=== PATIENT | female | born 1950 | race Caucasian/White ===

== ENCOUNTER 2016-08-22 12:18 | Emergency (ER) | payer MEDICARE, OTHER ==
[2016-08-22] MEDS ORDERED: DIPH,PERTUS(ACELL)TETVAC-LF 0.5 ML VIAL IM ONE (12:32)
--- NOTE | 2016-08-22 12:48 | ED ---
Fall HPI - General Chief Complaint: Fall Stated Complaint: Fall Time Seen by Provider: 08/22/16 12:27 Source: patient, EMS, RN notes reviewed Mode of arrival: EMS Limitations: no limitations - History of Present Illness Initial Comments: 66-year-old female presents emergency Department chief complaint of slip and fall, facial injury. Patient states that she slipped and fell onto a milk crate. Patient states she fell and hit her face and the ground also. Patient claims of facial pain, nose pain. Patient has a laceration to her lip and some epistaxis noted. Patient is unsure when her last tetanus was. Patient denies any blood thinners. Patient denies any neck, back pain. Patient denies any hip pain, upper extremity injuries. - Related Data Home Medications Medication Instructions Recorded Confirmed Hydrochlorothiazide 25 mg PO DAILY 10/15/13 08/22/16 [Hydrochlorothiazide] Multivitamins, Thera [Multivitamin] 1 tab PO DAILY 10/15/13 08/22/16 Vitamin E (Dl,Tocopheryl Acet) 400 units PO DAILY 10/15/13 08/22/16 [Vitamin E] Fiber Gummy 1 tab PO DAILY 06/17/15 08/22/16 Oxybutynin Chloride [Ditropan] 5 mg PO TID 06/17/15 08/22/16 ARIPiprazole [Abilify] 5 mg PO DAILY 08/22/16 08/22/16 Desvenlafaxine [Pristiq ER] 100 mg PO DAILY 08/22/16 08/22/16 busPIRone HCL 15 mg PO BID 08/22/16 08/22/16 Previous Rx's Medication Instructions Recorded Amoxicillin/Potassium Clav 1 tab PO Q12HR #20 tab 08/22/16 [Augmentin 875-125 Tablet] Hydrocodone/Acetaminophen [Campbell 1 tab PO Q6HR PRN #20 tab 08/22/16 5-325] Allergies Allergy/AdvReac Type Severity Reaction Status Date / Time codeine Allergy Unknown Verified 08/22/16 12:23 Review of Systems ROS Statement: Those systems with pertinent positive or pertinent negative responses have been documented in the HPI. ROS Other: All systems not noted in ROS Statement are negative. Past Medical History Past Medical History: Eye Disorder, Hyperlipidemia, Hypertension, Osteoarthritis (OA), Thyroid Disorder History of Any Multi-Drug Resistant Organisms: None Reported Past Surgical History: Cholecystectomy, Hysterectomy, Orthopedic Surgery Additional Past Surgical History / Comment(s): thumb surgery, plates and screws in left foot Past Anesthesia/Blood Transfusion Reactions: No Reported Reaction Past Psychological History: Anxiety Smoking Status: Never smoker Past Alcohol Use History: None Reported Past Drug Use History: None Reported General Exam Limitations: no limitations General appearance: alert, in no apparent distress Head exam: Present: atraumatic, normocephalic, normal inspection Eye exam: Present: normal appearance, PERRL, EOMI. Absent: scleral icterus, conjunctival injection, periorbital swelling ENT exam: Present: mucous membranes moist, TM's normal bilaterally, normal external ear exam, other (Extensive swelling and ecchymosis noted over the nose with tenderness over the nasal bridge there is some superficial lacerations noted along the nares and superficial lacerations in between the eyebrows, there is extensive swelling of the naris and full to visualize the nostrils). Absent: normal exam, normal oropharynx (1 cm lip laceration noted in the upper lip) Neck exam: Present: normal inspection. Absent: tenderness, meningismus, full ROM (Patient in c-collar), lymphadenopathy Respiratory exam: Present: normal lung sounds bilaterally. Absent: respiratory distress, wheezes, rales, rhonchi, stridor Cardiovascular Exam: Present: regular rate, normal rhythm, normal heart sounds. Absent: systolic murmur, diastolic murmur, rubs, gallop, clicks GI/Abdominal exam: Present: soft, normal bowel sounds. Absent: distended, tenderness, guarding, rebound, rigid Extremities exam: Present: normal inspection, full ROM, normal capillary refill , other (No pelvis tenderness). Absent: tenderness, pedal edema, joint swelling , calf tenderness Back exam: Present: full ROM. Absent: tenderness Neurological exam: Present: alert, oriented X3, CN II-XII intact, reflexes normal. Absent: motor sensory deficit Skin exam: Present: warm, dry, intact, normal color. Absent: rash Course Vital Signs 08/22/16 12:19 Temperature 98.0 F Pulse Rate 92 Respiratory 16 Rate Blood Pressure 175/93 O2 Sat by Pulse 95 Oximetry Procedures - Laceration Laceration #1 Consent Obtained: verbal consent Time Out Performed: Yes Site: lip Size (cm): 1 Description: irregular Depth: simple, single layer Anesthetic Used: lidocaine 1%, without epi Anesthesia Technique: local infiltration Amount (mls): 3 Pre-repair: wound explored, irrigated extensively, deep structures intact Type of Sutures: nylon Size of Sutures: 6-0 Number of Sutures: 3 Technique: simple, interrupted Patient Tolerated Procedure: well, no complications Medical Decision Making - Medical Decision Making 66-year-old female presented emergency department for fall facial injury. Patient has ethmoid all fracture and nasal fracture. Patient will follow-up with ENT. Patient was placed on Augmentin and Campbell. Return parameters were discussed. Disposition Clinical Impression: Fall, Nasal fracture, Ethmoid fracture Disposition: HOME SELF-CARE Condition: Stable Instructions: Nasal Fracture (ED) Additional Instructions: Please return to the Emergency Department if symptoms worsen or any other concerns. Prescriptions: Amoxicillin/Potassium Clav [Augmentin 875-125 Tablet] 1 tab PO Q12HR #20 tab Hydrocodone/Acetaminophen [Campbell 5-325] 1 tab PO Q6HR PRN #20 tab PRN Reason: Pain Referrals: Vazquez Brambila MD [Primary Care Provider] - 1-2 days Jame Duran MD [STAFF PHYSICIAN] - 1-2 days Time of Disposition: 15:03
--- NOTE | 2016-08-22 14:25 | CT ---
EXAMINATION TYPE: CT facial bones wo con DATE OF EXAM: 08/22/2016 COMPARISON: NONE HISTORY: Pain CT DLP: 943.8 mGycm Automated exposure control for dose reduction was used. TECHNIQUE: CT scan of the sinuses is performed without contrast, axial images are obtained, coronal r eformatted images are also reviewed. FINDINGS: Artifact limits assessment. Artifact arises from previous dental work. Nasal septal deviation noted. Extensive abnormal soft tissue is seen within the nasal canal. There ap pears to be fracture involving the ethmoidal plate of the nasal bone. Nasal bridge fracture suspected . Chronic fecal periosteal thickening involving the left maxillary sinus. Hyperostosis of the calvarium noted. Mild chronic ethmoidal sinusitis. Orbits are intact. Intraorbital structures are intact. IMPRESSION: 1. Nasal bridge and ethmoidal plate fracture with extensive hematoma or edema within the nasal canal.
--- NOTE | 2016-08-22 14:33 | CT ---
EXAMINATION TYPE: CT brain ximena porter DATE OF EXAM: 08/22/2016 COMPARISON: NONE HISTORY: Pain CT DLP: 943.8 mGycm Automated exposure control for dose reduction was used. TECHNIQUE: CT scan of the head and cervical spine are performed without contrast. FINDINGS: There is extensive dural calcification. Hyperostosis is seen. Calvarium is intact. Nasal bone fracture suspected with extensive soft tissue hematoma or edema within the nasal canal. Degenerative change of the spine. Periventricular low-attenuation suggestive of remote microvascular ischemia. Hypertrophic spurs and degenerative disc disease are seen C5-6 and C6-C7. Posterior spondylosis and f oraminal encroachment with possible canal stenosis. Correlate with MRI. Multilevel facet arthropathy. IMPRESSION: 1. There is no acute fracture or dislocation evident in the cervical spine. Multilevel degenerative d isc disease and facet arthropathy. Correlate with MRI. 2. No acute intracranial hemorrhage, mass effect, or midline shift is seen. 3. Thyroid nodules with thyroid calcification.
[2016-08-22 15:22] VITALS: BP 154/83; PULSE 87; RESP 18; TEMP 98.3
== END 2016-08-22 15:21 | disposition home or self-care (01) ==
LOC: EC 12:18
DX: S02.19XA Other fracture of base of skull, initial encounter for closed fracture (principal); S02.2XXA Fracture of nasal bones, initial encounter for closed fracture; S01.511A Laceration without foreign body of lip, initial encounter; I10 Essential (primary) hypertension; F41.9 Anxiety disorder, unspecified; Z79.899 Other long term (current) drug therapy; Z88.5 Allergy status to narcotic agent; Z23 Encounter for immunization; W01.198A Fall on same level from slipping, tripping and stumbling with subsequent striking against other object, initial encounter
CPT/HCPCS: 12011; 70450; 70486; 72125; 90471; 90715; 99284

== ENCOUNTER → 2017-01-31 | Outpatient (CLI) | payer MEDICARE, OTHER ==
[~2017-01-31] MED LIST: ATROPINE SULFATE 0.1 MG/ML 10ML SYRINGE ONE; DOBUTamine DRIP for NUC MED 500 MG in DEXTROSE/WATER 1 250ML.BAG IV ONE; METOPROLOL TARTRATE 5 MG/5 ML VIAL IVP ONE
--- NOTE | 2017-01-31 16:58 | ECHOS ---
Stress Test Results/Findings: Exam Performed: dobutamine stress echo Exam Date: 01/31/17 Reason for Exam: Chest Pain Height: 5 ft 2 in Weight: 84.368 kg Protocol: Dobutamine Stress echo Stage: 4 Duration of Exercise: 16 Resting Heart Rate: 72 Resting Blood Pressure: 135/80 Maximum Achieved Heart Rate: 156 Maximum Achieved Blood Pressure: 160/69 85% PMHR: 130 100% PMHR: 153 METS: na Technologist Comment: Stress Test Results/Findings: Baseline EKG showed sinus rhythm with a mild nonspecific ST-T abnormalities. EKGs taken during dobutamine infusion showed about 1 mm horizontal depression at peak infusion with continued mild ST-T abnormalities in the post x-rays.. Patient did not express any chest pain. Echo data: Baseline echo images showed normal wall motion and thickening. Echo images taken at low dose and high dose dobutamine showed augmentation of wall motion and thickening in all the segments. no focal ischemic changes noted. Final impression: #1. Borderline positive ST-T abnormalities during dobutamine infusion. These are felt to be nonspecific, because of baseline abnormalities. These changes also could be related to hypertensive response to exercise. #2. Negative dobutamine stress echo. [facility]
== END | disposition home or self-care (01) ==
LOC: RADNMMAIN 09:26
PROVIDERS: ATTEND Internal Medicine
DX: R07.9 Chest pain, unspecified (principal)
CPT/HCPCS: 93017; 93350

== ENCOUNTER 2017-11-23 15:23 | Emergency (ER) | payer MEDICARE, OTHER ==
[2017-11-23 15:45] VITALS: RESP 18
--- NOTE | 2017-11-23 15:53 | ED ---
Chest Pain HPI - General Chief Complaint: Chest Pain Stated Complaint: Chest Pain Time Seen by Provider: 11/23/17 15:23 Source: patient, EMS, RN notes reviewed Mode of arrival: EMS Limitations: no limitations - History of Present Illness Initial Comments: This is a 67-year-old female who was brought in by EMS due to onset of chest pain which she was at work today she states was located in the lower sternal sharp and radiating around the breast into the neck and jaw.. Mild to moderate in severity not associated with any nausea vomiting fevers chills sweats or other symptoms. He currently is pain-free. MD Complaint: chest pain - Related Data Home Medications Medication Instructions Recorded Confirmed Hydrochlorothiazide 25 mg PO DAILY 10/15/13 11/23/17 Oxybutynin Chloride [Ditropan] 5 mg PO TID 06/17/15 11/23/17 ARIPiprazole [Abilify] 5 mg PO HS 08/22/16 11/23/17 Desvenlafaxine [Pristiq ER] 100 mg PO DAILY 08/22/16 11/23/17 busPIRone HCL 15 mg PO BID 08/22/16 11/23/17 Cholecalciferol (Vitamin D3) 2,000 unit PO DAILY 11/23/17 11/23/17 [Vitamin D3] Loratadine [Claritin] 10 mg PO DAILY 11/23/17 11/23/17 diphenhydrAMINE [Benadryl] 25 mg PO HS 11/23/17 11/23/17 Previous Rx's Medication Instructions Recorded Ibuprofen 800 mg PO Q6HR PRN #20 tablet 11/23/17 Allergies Allergy/AdvReac Type Severity Reaction Status Date / Time codeine Allergy Unknown Verified 11/23/17 15:56 Review of Systems ROS Statement: Those systems with pertinent positive or pertinent negative responses have been documented in the HPI. ROS Other: All systems not noted in ROS Statement are negative. EKG Findings - EKG Results: EKG: interpreted by BELLE COTEL, sinus rhythm, normal axis, normal QRS, normal ST/ T, no acute changes (Normal sinus rhythm of 83. OR 140 QRS duration 78 QT/ QTC 400/[address]-t wave changes.) Past Medical History Past Medical History: Eye Disorder, Hyperlipidemia, Hypertension, Osteoarthritis (OA), Thyroid Disorder History of Any Multi-Drug Resistant Organisms: None Reported Past Surgical History: Cholecystectomy, Hysterectomy, Orthopedic Surgery Additional Past Surgical History / Comment(s): thumb surgery, plates and screws in left foot Past Anesthesia/Blood Transfusion Reactions: No Reported Reaction Past Psychological History: Anxiety Smoking Status: Never smoker Past Alcohol Use History: None Reported Past Drug Use History: None Reported General Exam - General Exam Comments Initial Comments: This is a well-developed well-nourished awake alert oriented 3 female Limitations: no limitations General appearance: alert, in no apparent distress Head exam: Present: atraumatic, normocephalic, normal inspection Eye exam: Present: normal appearance, PERRL, EOMI. Absent: scleral icterus, conjunctival injection, periorbital swelling ENT exam: Present: normal exam, mucous membranes moist Neck exam: Present: normal inspection. Absent: tenderness, meningismus, lymphadenopathy Respiratory exam: Present: normal lung sounds bilaterally, chest wall tenderness. Absent: respiratory distress, wheezes, rales, rhonchi, stridor Cardiovascular Exam: Present: regular rate, normal rhythm, normal heart sounds. Absent: systolic murmur, diastolic murmur, rubs, gallop, clicks GI/Abdominal exam: Present: soft, normal bowel sounds. Absent: distended, tenderness, guarding, rebound, rigid Extremities exam: Present: full ROM, normal capillary refill, other (Right lower extremity has some mild increased erythema and warmth compared to the left with some edema patient does have an Dieter wrap proximal to the site.). Absent: tenderness, joint swelling, calf tenderness Back exam: Present: normal inspection Neurological exam: Present: alert, oriented X3, CN II-XII intact Psychiatric exam: Present: normal affect, normal mood Skin exam: Present: warm, dry, intact, normal color. Absent: rash Course Vital Signs 11/23/17 11/23/17 15:25 15:49 Temperature 98.5 F Pulse Rate 84 Respiratory 18 18 Rate Blood Pressure 140/67 O2 Sat by Pulse 98 Oximetry Chest Pain MDM - MDM I did review the imaging and report no acute findings. Patient will be discharged the presentation is consistent with costochondritis. Disposition Clinical Impression: Costalchondritis, Chest wall syndrome Disposition: HOME SELF-CARE Condition: Good Instructions: Costochondritis (ED) Prescriptions: Ibuprofen 800 mg PO Q6HR PRN #20 tablet PRN Reason: Pain Is patient prescribed a controlled substance at d/c from ED?: No Referrals: Vazquez Brambila MD [Primary Care Provider] - 1-2 days
[2017-11-23 16:11] LABS: Basophils % (A) 0 %; Eosinophils # (A) 0.2 k/uL (0-0.7); Eosinophils % (A) 3 %; HCT 38.3 % (34.0-46.0); HGB 12.5 gm/dL (11.4-16.0); Lymphocytes # (A) 2.2 k/uL (1.0-4.8); Lymphocytes % (A) 33 %; MCH 28.8 pg (25.0-35.0); MCHC 32.7 g/dL (31.0-37.0); MCV 88.3 fL (80.0-100.0); Mean Platelet Volume 7.1; Monocytes # (A) 0.4 k/uL (0-1.0); Monocytes % (A) 6 %; Neutrophils # (A) 3.7 k/uL (1.3-7.7); Neutrophils % (A) 54 %; Platelet Count 264 k/uL (150-450); RBC 4.34 m/uL (3.80-5.40); RDW 14.2 % (11.5-15.5); WBC 6.7 k/uL (3.8-10.6)
[2017-11-23 16:20] LABS: ALT 24 U/L (9-52); AST 25 U/L (14-36); Alkaline Phosphatase 74 U/L (38-126); Amylase 48 U/L (30-110); Anion Gap 9 mmol/L; Blood Urea Nitrogen 17 mg/dL (7-17); Calcium 9.1 mg/dL (8.4-10.2); Carbon Dioxide 30 mmol/L (22-30); Chloride 99 mmol/L (98-107); Glucose 107 mg/dL (74-99); Lipase 71 U/L (23-300); Potassium 3.6 mmol/L (3.5-5.1); Sodium 138 mmol/L (137-145); Total Bilirubin 0.3 mg/dL (0.2-1.3)
[2017-11-23 16:26] LABS: D-Dimer 0.22 mg/L FEU (<0.60); Partial Thromboplastin Time 25.9 sec (22.0-30.0); Prothrombin Time 9.8 sec (9.0-12.0)
[2017-11-23 16:31] LABS: Creatine Kinase 122 U/L (30-135)
[2017-11-23 16:44] LABS: Creatine Kinase MB 1.7 ng/mL (0.0-2.4); Troponin I <0.012 ng/mL (0.000-0.034)
--- NOTE | 2017-11-23 17:52 | XR ---
EXAMINATION TYPE: XR chest 2V DATE OF EXAM: 11/23/2017 COMPARISON: NONE HISTORY: Chest pain TECHNIQUE: Frontal and lateral views of the chest are obtained. FINDINGS: Heart and mediastinum are normal. Lungs are clear. Diaphragm is normal. Bony thorax is int act. There are chest leads. IMPRESSION: Normal chest.
[2017-11-23 18:02] VITALS: BP 168/95; PULSE 81; TEMP 98
== END 2017-11-23 18:06 | disposition home or self-care (01) ==
LOC: EC 15:23
DX: M94.0 Chondrocostal junction syndrome [Tietze] (principal); L53.9 Erythematous condition, unspecified; R60.0 Localized edema; M54.2 Cervicalgia; R68.84 Jaw pain; I10 Essential (primary) hypertension; F41.9 Anxiety disorder, unspecified; Z88.5 Allergy status to narcotic agent; Z79.899 Other long term (current) drug therapy
CPT/HCPCS: 36415; 71046; 80053; 82150; 82550; 82553; 83690; 83735; 83880; 84484; 85025; 85379; 85610; 85730; 93005; 99285

== ENCOUNTER → 2017-12-28 | Outpatient (CLI) | payer MEDICARE, OTHER ==
--- NOTE | 2017-12-28 15:12 | CONS ---
CONSULTATION DATE OF SERVICE: 12/28/2017 A 67-year-old lady who has been evaluated in the [facility] for possible obstructive sleep apnea-hypopnea syndrome. HISTORY OF PRESENT ILLNESS/SLEEP-WAKE EVALUATION: Patient usual sleep schedule from 9:00 p.m. until 5:00 a.m. on weekdays and from 11:00 p.m. until 8:00 a.m. on weekends, usually no problems to fall asleep. She does have a TV set in bedroom, usually sleeps on the side position with loud snoring and multiple awakenings from sleep around 3 times with nocturia. She wakes up also with a dry mouth, panic attack, heartburn, gasping for air, choking, restless legs. During the day, she has difficulties to pay tension has some problem with memory, concentration, irritability, depression and anxiety. Sheldon Sleepiness Scale is 5. PAST MEDICAL HISTORY: Positive for anxiety, schizophrenia, seasonal allergy. PAST SURGICAL HISTORY: Hysterectomy, cholecystectomy. MEDICATIONS: Buspirone, Claritin, furosemide, multivitamins, omeprazole. SOCIAL HISTORY: Positive for smoking for about 30 pack years, quit around 10 years ago. Alcohol consumption none. REVIEW OF SYSTEMS: Awakenings from sleep with dry mouth, nocturia, sometimes problem with the memory and mood swinging during the day. No driving today. Just mood swing. FAMILY HISTORY: Hypertension, heart problems, hyperlipidemia, stroke, arthritis, emphysema, diabetes, thyroid problems. PHYSICAL EXAM: lady without distress. BP on left arm 197/69 and on the right arm 199/75, HR 89, RR 16, height 5, 0, weight 206.8,, body mass index 38.5, temperature 97.9 oxygen saturation room air 98%. OROPHARYNX: Extremely low position of soft palate. Mallampati IV, restriction of nasal breathing. ABDOMEN: Obese. EXTREMITIES: Up to 1+ ankle edema. Patient has sometimes dizziness. She walks with a walker. IMPRESSION: 1. Snoring, multiple awakenings from sleep with nocturia and dry mouth, extremely low position of soft palate. Restriction of nasal breathing, obstructive sleep apnea- hypopnea syndrome. 2. Obesity, body mass index 38.93. 3. Hypertension in the office today and also some documented increased blood pressure at [facility] in the past. 4. Anxiety. 5. History of schizophrenia. 6. Right foot problems. 7. Seasonal allergies. 8. Status post hysterectomy. 9. Status post cholecystectomy. 10.Status post 30 pack year smoking. PLAN: 1. Polysomnography for evaluation of patient's breathing during sleep. 2. CPAP/BiPAP titration if sleep study confirms obstructive sleep apnea-hypopnea syndrome. 3. Preferable position during sleep on the side. 4. No driving if patient feels any sleepiness. 5. I will see patient for follow up visit to explain results of testing and following plan. 6. Low-sodium diet. 7. Monitoring blood pressure in the primary care physician's office for possibility of starting medication for hypertension. Thank you very much for referring this patient for consultation. Sincerely, Germain Roca MD, PhD, FAASM Diplomat of [employer] [place] [employer] [facility] [facility] [place] MMODL / MOSHEN: [id number] /
== END | disposition home or self-care (01) ==
LOC: SLEEP 13:14
PROVIDERS: ATTEND Internal Medicine
DX: G47.33 Obstructive sleep apnea (adult) (pediatric) (principal); E66.9 Obesity, unspecified; R03.0 Elevated blood-pressure reading, without diagnosis of hypertension; F41.9 Anxiety disorder, unspecified; J30.2 Other seasonal allergic rhinitis; F20.9 Schizophrenia, unspecified; Z68.38 Body mass index [BMI] 38.0-38.9, adult; Z87.891 Personal history of nicotine dependence; Z90.710 Acquired absence of both cervix and uterus; Z90.49 Acquired absence of other specified parts of digestive tract; Z79.899 Other long term (current) drug therapy
CPT/HCPCS: 99211

== ENCOUNTER 2018-01-29 13:40 | Emergency (ER) | payer MEDICARE, OTHER ==
[2018-01-29 14:01] VITALS: RESP 18
--- NOTE | 2018-01-29 14:03 | ED ---
Wound/Laceration HPI - General Chief Complaint: Wound/Laceration Stated Complaint: Wound reopened Time Seen by Provider: 01/29/18 14:02 Source: patient Mode of arrival: ambulatory Limitations: no limitations - History of Present Illness Initial Comments: 68-year-old female with past medical history of hypertension, hyperlipidemia and thyroid disorder presenting today for chief complaint of bleeding from recent laceration. Patient states that week ago she had laceration repair of her left ring finger. She states that there is a piece of skin avulsed from the fingertip that was tactile with sutures. Patient was put on prophylactic antibiotics Keflex twice a day 7 days. Patient states she took the whole course of antibiotics. She states sutures removed on Monday. Patient works with her hands, and states that she thinks she bumped the laceration causing it to open. Patient states that a blood minimally yesterday after bumping it while putting on socks, when she bumped it again today she noticed a small amount of bleeding she presented for evaluation. Patient denies any warmth, erythema, decreased ROM, increased pain, purulent drainage, tenderness to palpation at the tip of the finger, fever, chills, nightsweats. Upon arrival pt is well appearing, VS within acceptable limits. Remainder of ROS (-) Patient denies any shortness of breath, chest pain, back pain, abdominal pain, nausea or vomiting, numbness or tingling, dysuria or hematuria, constipation or diarrhea, headaches or visual changes, or any other complaints. - Related Data Home Medications Medication Instructions Recorded Confirmed Hydrochlorothiazide 25 mg PO DAILY 10/15/13 11/23/17 Oxybutynin Chloride [Ditropan] 5 mg PO TID 06/17/15 11/23/17 ARIPiprazole [Abilify] 5 mg PO HS 08/22/16 11/23/17 Desvenlafaxine [Pristiq ER] 100 mg PO DAILY 08/22/16 11/23/17 busPIRone HCL 15 mg PO BID 08/22/16 11/23/17 Cholecalciferol (Vitamin D3) 2,000 unit PO DAILY 11/23/17 11/23/17 [Vitamin D3] Loratadine [Claritin] 10 mg PO DAILY 11/23/17 11/23/17 diphenhydrAMINE [Benadryl] 25 mg PO HS 11/23/17 11/23/17 Previous Rx's Medication Instructions Recorded Ibuprofen 800 mg PO Q6HR PRN #20 tablet 11/23/17 Cephalexin [Keflex] 500 mg PO Q6HR 3 Days #12 cap 01/18/18 Dicloxacillin [Dynapen] 500 mg PO Q6H 5 Days #20 capsule 01/29/18 Allergies Allergy/AdvReac Type Severity Reaction Status Date / Time codeine Allergy Unknown Verified 01/29/18 14:00 Review of Systems ROS Statement: Those systems with pertinent positive or pertinent negative responses have been documented in the HPI. ROS Other: All systems not noted in ROS Statement are negative. Constitutional: Denies: fever, chills Eyes: Denies: eye pain ENT: Denies: ear pain, throat pain Respiratory: Denies: cough, dyspnea, wheezes, hemoptysis, stridor Cardiovascular: Denies: chest pain, palpitations Endocrine: Denies: fatigue Gastrointestinal: Denies: abdominal pain, nausea, vomiting, diarrhea, constipation Genitourinary: Denies: urgency, dysuria, frequency Musculoskeletal: Denies: back pain Skin: Reports: as per HPI (wound dihisence left ring finger). Denies: rash, lesions Neurological: Denies: headache, weakness, numbness, paresthesias, confusion Past Medical History Past Medical History: Eye Disorder, Hyperlipidemia, Hypertension, Osteoarthritis (OA), Thyroid Disorder History of Any Multi-Drug Resistant Organisms: None Reported Past Surgical History: Cholecystectomy, Hysterectomy, Orthopedic Surgery Additional Past Surgical History / Comment(s): thumb surgery, plates and screws in left foot Past Anesthesia/Blood Transfusion Reactions: No Reported Reaction Past Psychological History: Anxiety Smoking Status: Never smoker Past Alcohol Use History: None Reported Past Drug Use History: None Reported General Exam - General Exam Comments Initial Comments: General: The patient is awake and alert, in no distress, and does not appear acutely ill. Eye: Pupils are equal, round and reactive to light, extra-ocular movements are intact. No nystagmus. There is normal conjunctiva bilaterally. No signs of icterus. Ears, nose, mouth and throat: There are moist mucous membranes and no oral lesions. Cardiovascular: There is a regular rate and rhythm. No murmur, rub or gallop is appreciated. Respiratory: Lungs are clear to auscultation, respirations are non-labored, breath sounds are equal. No wheezes, stridor, rales, or rhonchi. Musculoskeletal: Normal ROM, no tenderness. Strength 5/5. Sensation intact. Radial pulses equal bilaterally 2+. Capillary refill < 2 seconds. Neurological: A&O x 3. CN II-XII intact, There are no obvious motor or sensory deficits. Coordination appears grossly intact. Speech is normal. Skin: Skin is warm and dry and no rashes. Small avulsion of skin of left index finger, it does appear as though the wound edges are dehisced. No evidence of erythema, purulent drainage, active bleeding. No devitalized tissue. No pain with ROM at the MCP, DIP or PIP joints. No swelling of the finger, No evidence of felon or other soft tissue infection. Psychiatric: Cooperative, appropriate mood & affect, normal judgment. Limitations: no limitations Course Vital Signs 01/29/18 13:57 Temperature 98.8 F Pulse Rate 83 Respiratory 18 Rate Blood Pressure 180/83 O2 Sat by Pulse 98 Oximetry Medical Decision Making - Medical Decision Making PE revealed mild wound dehiscence, there is no signs of active infection. Patient's wound this is most likely due to repetitive trauma of the finger tip at work. Pt placed on dicloxacillin x 5 days for infection ppx. I recommended close f/u with primary care provider to monitor for infection. I soaked finger in iodine mixture, cleansing with water, applied topical abx and sterile bandage. A splint was placed to avoid trauma to finger tip. Case discussed with Dr. Friedman at this time we feel pt is stable for discharge. Pt is agreeable with plan. Return parameters discussed at length with patient, who verbalized understanding. Pt discharged in stable condition. Disposition Clinical Impression: Wound dehiscence, traumatic injury repair Disposition: HOME SELF-CARE Condition: Good Instructions: Wound Dehiscence (ED) Additional Instructions: Please use medication as discussed. Please follow-up with family doctor in the next 2 days for wound check. Please wear finger splint to avoid injury to affected area. Please return to emergency room if the symptoms increase or worsen or for any other concerns. Prescriptions: Dicloxacillin [Dynapen] 500 mg PO Q6H 5 Days #20 capsule Is patient prescribed a controlled substance at d/c from ED?: No Referrals: Vazquez Brambila MD [Primary Care Provider] - 1-2 days Time of Disposition: 14:36
[2018-01-29 15:08] VITALS: BP 183/63; PULSE 88; TEMP 97.6
== END 2018-01-29 15:06 | disposition home or self-care (01) ==
LOC: EC 13:40
DX: T81.33XA Disruption of traumatic injury wound repair, initial encounter (principal); F41.9 Anxiety disorder, unspecified; I10 Essential (primary) hypertension; Z79.899 Other long term (current) drug therapy; Z88.5 Allergy status to narcotic agent
CPT/HCPCS: 99283

== ENCOUNTER → 2018-03-01 | Outpatient (CLI) | payer MEDICARE, OTHER ==
--- NOTE | 2018-03-05 09:40 | MM ---
Reason for exam: screening (asymptomatic). Last mammogram was performed 1 year and 2 months ago. History: Patient is postmenopausal and is nulliparous. Family history of breast cancer in sister and breast cancer in mother. Took estrogen for 37 years beginning at age 16. Physical Findings: A clinical breast exam by your physician is recommended on an annual basis and results should be correlated with mammographic findings. MG 3D Screening Mammo W/Cad Bilateral CC and MLO view(s) were taken. Prior study comparison: January 06, 2017, bilateral MG 3d screening mammo w/cad. December 11, 2015, bilateral MG 3d screening mammo w/cad. There are scattered fibroglandular densities. There is chronic nodularity bilaterally. No significant changes when compared with prior studies. ASSESSMENT: Benign, BI-RAD 2 RECOMMENDATION: Routine screening mammogram of both breasts in 1 year.
== END | disposition home or self-care (01) ==
LOC: RADMAMWWP 14:33
PROVIDERS: ATTEND Internal Medicine
DX: Z12.31 Encounter for screening mammogram for malignant neoplasm of breast (principal)
CPT/HCPCS: 77063; 77067

== ENCOUNTER → 2018-03-30 | Outpatient (CLI) | payer MEDICARE, OTHER ==
--- NOTE | 2018-04-02 07:40 | BD ---
EXAMINATION TYPE: Axial Bone Density DATE OF EXAM: 03/30/2018 COMPARISON: 10.01.2010 CLINICAL HISTORY: 68 YR OLD FEMALE....ICD-10 CODE: Z78.0 POST MENOPAUSAL W/O HRT Height: 60.2 Weight: 202 FRAX RISK QUESTIONS: UNSURE IF ANY OTHER FACTORS APPLY History of Fracture in Adulthood: YES PT MENTALLY CHALLENGED, MEDICAL HISTORY BEST I COULD OBTAIN, SCAN BEST POSSIBLE RISK FACTORS HISTORY OF: HX OF LT ANKLE FRACTURE AND LT THUMB...OVER AGE 50 Family History of Osteoporosis: UNKNOWN, POOR HISTORIAN Postmenopausal woman: IN HER 50s ABOUT, DISABLED Lost more than 2 inches in height since high school: YES Frequent falls: USES WALKER, UNSTEADY Hyperparathyroidism: UNKNOWN Adrenal Insufficiency: UNKNOWN MEDICATIONS: Thyroid Medications: YES, SYNTHROID, MANY YRS Additional Medications: BP MEDS, ANTI SEIZURE AND ANXIETY MEDS, CHOLESTEROL, VITAMINS....UNSURE OF AL L, POOR HISTORIAN Additional History: MENTALLY DISABLED EXAM MEASUREMENTS: Bone mineral densitometry was performed using the [employer] System. Bone mineral density as measured about the Lumbar spine is: ----- L1-L4(G/cm2): 1.048 T Score Values are as follows: ----- L1: -0.9 ----- L2: -0.7 ----- L3: -1.3 ----- L4: -1.5 ----- L1-L4: -1.1 Bone mineral density has: Decreased -0.8ince study of: 10.01.2010 Bone mineral density about the R hip (g/cm2): 0.755 Bone mineral density about the L hip (g/cm2): 0.732 T Score values are as follows: -----R Neck: -2.2 -----L Neck: -1.9 -----R Total: -2.0 -----L Total: -2.2 Bone mineral density has: Decreased -8.2ince study of: 10.01.2010 FRAX%s: THERE IS A 17.8% CHANCE FOR A MAJOR OSTEOPOROTIC FX AND A 3.2% FOR HIP....PROBABILITY OF FX IN 10 YRS TIME IMPRESSION: Osteopenia about the lumbar spine and bilateral femoral. NOTE: T-SCORE=SD OF THE YOUNG ADULT MEAN.
== END ==
LOC: RADBDWWP 09:53
PROVIDERS: ATTEND Internal Medicine
DX: Z13.820 Encounter for screening for osteoporosis (principal); M85.88 Other specified disorders of bone density and structure, other site; M85.851 Other specified disorders of bone density and structure, right thigh; M85.852 Other specified disorders of bone density and structure, left thigh; Z78.0 Asymptomatic menopausal state
CPT/HCPCS: 77080

== ENCOUNTER → 2018-04-05 | Outpatient (CLI) | payer MEDICARE, OTHER ==
--- NOTE | 2018-04-05 17:14 | PN ---
PROGRESS NOTE DATE OF SERVICE: 04/05/2018 This patient is a 68-year-old lady who has come here for followup for treatment of obstructive sleep apnea-hypopnea syndrome. Recently patient had a polysomnogram which showed that the patient has severe sleep apnea. Subsequently she had CPAP titration and then she was started on treatment with CPAP. Today is her first visit after she was started on treatment with CPAP. I discussed results of her sleep studies, including polysomnography and sleep titration, with the family in detail. The patient is able to use CPAP equipment, but sometimes she falls asleep before putting her mask on, and when she puts her mask on, she sleeps only for a few hours. Usage is 30/30 nights but for more than 4 hours only 5/30 nights. Average usage 2.6 hours. [place] Sleepiness Scale is significantly increased at 15. I checked her CPAP unit. Pressure is in the range of 5 to 15. Most of the time pressure is 14 cm of water. There is a significant leak of 44 L/minute. Apnea-hypopnea index is 35.2, which is high. This is related to only 0.2 central apnea index. MEDICATIONS: 1. Buspirone. 2. Claritin. 3. Furosemide. 4. Omeprazole. 5. Multivitamins. PHYSICAL EXAMINATION: GENERAL: A pleasant patient in no distress. VITAL SIGNS: BP 178/119 and again it was 182/116, HR 98, RR 19, weight 210.0, temperature 98.2. HEENT: PERRLA, EOMI. Evaluation of oropharynx showed tongue protrudes midline. Low position of soft palate. NECK: Supple. No JVD. Thyroid is not palpable. LUNGS: Clear to percussion and to auscultation. Good air exchange. No wheezing or rhonchi. HEART: S1, S2 regular. No murmurs, gallops or rubs. ABDOMEN: Obese. EXTREMITIES: No clubbing or cyanosis. PHYSICAL THERAPY ASSISTANT: Awake, alert, and oriented X3. Cranial nerves 2 to 7 intact. There is no fasciculation or atrophy. noted. No focal deficits observed. IMPRESSION: 1. Severe obstructive and central sleep apnea-hypopnea syndrome; apnea-hypopnea index 64.9 with oxygen desaturation severely low at 38.7%. Patient is using equipment every night, but usually not for the whole night. Significant leak from the mask. Probably patient opens her mouth. Subsequently apnea-hypopnea index in the high range. 2. Obesity. 3. Hypertension. 4. Anxiety. 5. History of schizophrenia. 6. Right foot problems. 7. Seasonal allergies. 8. Status post hysterectomy. 9. Status post cholecystectomy. 10.Status post 30 pack/years of smoking. PLAN: 1. Patient will continue to use CPAP equipment every night for the whole night. 2. Prescription for chin strap. 3. Losing weight. 4. Sleep hygiene with regular time in bed for at least 8 hours[address] Patient [address] not [address]. 6. Follow-up visit in 2 months. Thank you very much for allowing me to participate in the management of your patient. Sincerely, Germain Roca MD, PhD, FAASM Diplomat of [place] [employer] [place] [employer] Pre Billing Clinician of [facility] MMODL / MOSHEN: [id number] /
== END ==
LOC: SLEEP 15:45
PROVIDERS: ATTEND Internal Medicine
DX: Z53.9 Procedure and treatment not carried out, unspecified reason (principal)

== ENCOUNTER 2019-04-25 07:43 | Emergency (ER) | payer MEDICARE, OTHER ==
[2019-04-25] MEDS ORDERED: SODIUM CHLORIDE 0.9% 1,000 ML IV STA (07:47)
[2019-04-25] MEDS ORDERED: SODIUM CHLORIDE 0.9% 500 ML 500 ML IV STA (07:47)
[2019-04-25] MEDS ORDERED: ACETAMINOPHEN TAB 325 MG TAB PO STA (07:52)
--- NOTE | 2019-04-25 07:55 | ED ---
Weakness HPI - General Stated complaint: Weakness Time Seen by Provider: 04/25/19 07:43 Source: patient, EMS, RN notes reviewed, old records reviewed Mode of arrival: EMS - History of Present Illness Initial comments: This is a 69-year-old female who was at a local residential was a history of hypothyroidism hypertension acid cervical surgeries in the past is a poor historian and apparently doing well with This morning but she became very suddenly weak some lightheadedness she was found have a temperature 101.9 orally per paramedics and brought her in. No reports of any rhinorrhea cough sore throat dysuria nausea vomiting diarrhea or other symptoms. Patient herself is a poor historian. No other information available at this time MD Complaint: generalized weakness - Related Data Home Medications Medication Instructions Recorded Confirmed Hydrochlorothiazide 25 mg PO DAILY 10/15/13 11/23/17 Oxybutynin Chloride [Ditropan] 5 mg PO TID 06/17/15 11/23/17 ARIPiprazole [Abilify] 5 mg PO HS 08/22/16 11/23/17 Desvenlafaxine [Pristiq ER] 100 mg PO DAILY 08/22/16 11/23/17 busPIRone HCL 15 mg PO BID 08/22/16 11/23/17 Cholecalciferol (Vitamin D3) 2,000 unit PO DAILY 11/23/17 11/23/17 [Vitamin D3] Loratadine [Claritin] 10 mg PO DAILY 11/23/17 11/23/17 diphenhydrAMINE [Benadryl] 25 mg PO HS 11/23/17 11/23/17 Previous Rx's Medication Instructions Recorded Ibuprofen 800 mg PO Q6HR PRN #20 tablet 11/23/17 Cephalexin [Keflex] 500 mg PO Q6HR 3 Days #12 cap 01/18/18 Dicloxacillin [Dynapen] 500 mg PO Q6H 5 Days #20 capsule 01/29/18 Cephalexin [Keflex] 500 mg PO Q6HR #28 cap 04/25/19 Allergies Allergy/AdvReac Type Severity Reaction Status Date / Time codeine Allergy Unknown Verified 01/29/18 14:00 Review of Systems ROS Statement: Those systems with pertinent positive or pertinent negative responses have been documented in the HPI. ROS Other: All systems not noted in ROS Statement are negative. Limitations: ROS unobtainable due to patients medical condition Past Medical History Past Medical History: Eye Disorder, Hyperlipidemia, Hypertension, Osteoarthritis (OA), Thyroid Disorder History of Any Multi-Drug Resistant Organisms: None Reported Past Surgical History: Cholecystectomy, Hysterectomy, Orthopedic Surgery Additional Past Surgical History / Comment(s): thumb surgery, plates and screws in left foot Past Anesthesia/Blood Transfusion Reactions: No Reported Reaction Past Psychological History: Anxiety Smoking Status: Never smoker Past Alcohol Use History: None Reported Past Drug Use History: None Reported General Exam - General Exam Comments Initial Comments: This is a well-developed well-nourished awake alert oriented female she does deny any pain at this time she does state she may have had a cough with some sort. General appearance: alert, in no apparent distress Head exam: Present: atraumatic, normocephalic, normal inspection Eye exam: Present: normal appearance, PERRL, EOMI. Absent: scleral icterus, conjunctival injection, periorbital swelling ENT exam: Present: mucous membranes moist, other (Boggy nasal mucosa) Neck exam: Present: normal inspection, full ROM, other (No stridor JVD or bruits). Absent: tenderness, meningismus, lymphadenopathy Respiratory exam: Present: decreased breath sounds, other (No overt focal consolidations or crepitation is). Absent: respiratory distress, wheezes, rales, rhonchi, stridor Cardiovascular Exam: Present: regular rate, normal rhythm, normal heart sounds. Absent: systolic murmur, diastolic murmur, rubs, gallop, clicks GI/Abdominal exam: Present: soft, normal bowel sounds. Absent: distended, tenderness, guarding, rebound, rigid Extremities exam: Present: normal inspection, full ROM, normal capillary refill. Absent: tenderness, pedal edema, joint swelling, calf tenderness Back exam: Present: normal inspection Neurological exam: Present: alert, oriented X3, CN II-XII intact Psychiatric exam: Present: normal affect, normal mood Skin exam: Present: warm, dry, intact, normal color. Absent: rash Course Vital Signs 04/25/19 04/25/19 04/25/19 08:00 08:15 08:30 Temperature 99.8 F H Pulse Rate 95 85 Respiratory 17 Rate Blood Pressure 142/83 138/56 138/56 O2 Sat by Pulse 91 L 93 L 92 L Oximetry 04/25/19 04/25/19 04/25/19 09:00 09:30 10:00 Temperature Pulse Rate 85 75 75 Respiratory Rate Blood Pressure 145/76 153/69 142/67 O2 Sat by Pulse 92 L Oximetry 04/25/19 04/25/19 10:30 11:00 Temperature Pulse Rate 76 84 Respiratory Rate Blood Pressure 151/78 160/62 O2 Sat by Pulse 91 L Oximetry Medical Decision Making - Medical Decision Making I did discuss findings with the patient family members patient be discharged the presentation is consistent with UTI. Also I'm depletion. Patient be placed on appropriate antibiotics. I did discuss this with the patient family members or present. - Lab Data Result diagrams: 04/25/19 07:54 04/25/19 07:54 Lab Results 04/25/19 04/25/19 04/25/19 Range/Units 07:54 07:54 07:54 WBC 9.0 (3.8-10.6) k/uL RBC 4.43 (3.80-5.40) m/uL Hgb 13.0 (11.4-16.0) gm/dL Hct 37.1 (34.0-46.0) % MCV 83.8 (80.0-100.0) fL MCH 29.3 (25.0-35.0) pg MCHC 34.9 (31.0-37.0) g/dL RDW 14.2 (11.5-15.5) % Plt Count 263 (150-450) k/uL Neutrophils % 83 % Lymphocytes % 11 % Monocytes % 4 % Eosinophils % 1 % Basophils % 0 % Neutrophils # 7.5 (1.3-7.7) k/uL Lymphocytes # 1.0 (1.0-4.8) k/uL Monocytes # 0.4 (0-1.0) k/uL Eosinophils # 0.1 (0-0.7) k/uL Basophils # 0.0 (0-0.2) k/uL PT (9.0-12.0) sec INR (<1.2) APTT (22.0-30.0) sec Sodium 138 (137-145) mmol/L Potassium 3.3 L (3.5-5.1) mmol/L Chloride 104 (98-107) mmol/L Carbon Dioxide 25 (22-30) mmol/L Anion Gap 9 mmol/L BUN 11 (7-17) mg/dL Creatinine 0.65 (0.52-1.04) mg/dL Est GFR (CKD-EPI)AfAm >90 (>60 ml/min/1.73 sqM) Est GFR (CKD-EPI)NonAf >90 (>60 ml/min/1.73 sqM) Glucose 160 H (74-99) mg/dL Plasma Lactic Acid Horacio 1.6 (0.7-2.0) mmol/L Calcium 8.4 (8.4-10.2) mg/dL Magnesium 1.6 (1.6-2.3) mg/dL Total Bilirubin 0.6 (0.2-1.3) mg/dL AST 19 (14-36) U/L ALT 13 (4-34) U/L Alkaline Phosphatase 93 (38-126) U/L Creatine Kinase 42 (30-135) U/L Troponin I (0.000-0.034) ng/mL Total Protein 6.7 (6.3-8.2) g/dL Albumin 3.7 (3.5-5.0) g/dL TSH (0.465-4.680) mIU/L Urine Color Urine Appearance (Clear) Urine pH (5.0-8.0) Ur Specific [place] (1.001-1.035) Urine Protein (Negative) Urine Glucose (UA) (Negative) Urine Ketones (Negative) Urine Blood (Negative) Urine Nitrite (Negative) Urine Bilirubin (Negative) Urine Urobilinogen (<2.0) mg/dL Ur Leukocyte Esterase (Negative) Urine RBC (0-5) /hpf Urine WBC (0-5) /hpf Ur Squamous Epith Cells (0-4) /hpf Hyaline Casts (0-2) /lpf Urine Mucus (None) /hpf Influenza Type A RNA (Not Detectd) Influenza Type B (PCR) (Not Detectd) 04/25/19 04/25/19 04/25/19 Range/Units 07:54 07:54 07:54 WBC (3.8-10.6) k/uL RBC (3.80-5.40) m/uL Hgb (11.4-16.0) gm/dL Hct (34.0-46.0) % MCV (80.0-100.0) fL MCH (25.0-35.0) pg MCHC (31.0-37.0) g/dL RDW (11.5-15.5) % Plt Count (150-450) k/uL Neutrophils % % Lymphocytes % % Monocytes % % Eosinophils % % Basophils % % Neutrophils # (1.3-7.7) k/uL Lymphocytes # (1.0-4.8) k/uL Monocytes # (0-1.0) k/uL Eosinophils # (0-0.7) k/uL Basophils # (0-0.2) k/uL PT 9.8 (9.0-12.0) sec INR 0.9 (<1.2) APTT 24.8 (22.0-30.0) sec Sodium (137-145) mmol/L Potassium (3.5-5.1) mmol/L Chloride (98-107) mmol/L Carbon Dioxide (22-30) mmol/L Anion Gap mmol/L BUN (7-17) mg/dL Creatinine (0.52-1.04) mg/dL Est GFR (CKD-EPI)AfAm (>60 ml/min/1.73 sqM) Est GFR (CKD-EPI)NonAf (>60 ml/min/1.73 sqM) Glucose (74-99) mg/dL Plasma Lactic Acid Horacio (0.7-2.0) mmol/L Calcium (8.4-10.2) mg/dL Magnesium (1.6-2.3) mg/dL Total Bilirubin (0.2-1.3) mg/dL AST (14-36) U/L ALT (4-34) U/L Alkaline Phosphatase (38-126) U/L Creatine Kinase (30-135) U/L Troponin I <0.012 (0.000-0.034) ng/mL Total Protein (6.3-8.2) g/dL Albumin (3.5-5.0) g/dL TSH (0.465-4.680) mIU/L Urine Color Urine Appearance (Clear) Urine pH (5.0-8.0) Ur Specific [place] (1.001-1.035) Urine Protein (Negative) Urine Glucose (UA) (Negative) Urine Ketones (Negative) Urine Blood (Negative) Urine Nitrite (Negative) Urine Bilirubin (Negative) Urine Urobilinogen (<2.0) mg/dL Ur Leukocyte Esterase (Negative) Urine RBC (0-5) /hpf Urine WBC (0-5) /hpf Ur Squamous Epith Cells (0-4) /hpf Hyaline Casts (0-2) /lpf Urine Mucus (None) /hpf Influenza Type A RNA Not Detected (Not Detectd) Influenza Type B (PCR) Not Detected (Not Detectd) 04/25/19 04/25/19 Range/Units 07:54 09:00 WBC (3.8-10.6) k/uL RBC (3.80-5.40) m/uL Hgb (11.4-16.0) gm/dL Hct (34.0-46.0) % MCV (80.0-100.0) fL MCH (25.0-35.0) pg MCHC (31.0-37.0) g/dL RDW (11.5-15.5) % Plt Count (150-450) k/uL Neutrophils % % Lymphocytes % % Monocytes % % Eosinophils % % Basophils % % Neutrophils # (1.3-7.7) k/uL Lymphocytes # (1.0-4.8) k/uL Monocytes # (0-1.0) k/uL Eosinophils # (0-0.7) k/uL Basophils # (0-0.2) k/uL PT (9.0-12.0) sec INR (<1.2) APTT (22.0-30.0) sec Sodium (137-145) mmol/L Potassium (3.5-5.1) mmol/L Chloride (98-107) mmol/L Carbon Dioxide (22-30) mmol/L Anion Gap mmol/L BUN (7-17) mg/dL Creatinine (0.52-1.04) mg/dL Est GFR (CKD-EPI)AfAm (>60 ml/min/1.73 sqM) Est GFR (CKD-EPI)NonAf (>60 ml/min/1.73 sqM) Glucose (74-99) mg/dL Plasma Lactic Acid Horacio (0.7-2.0) mmol/L Calcium (8.4-10.2) mg/dL Magnesium (1.6-2.3) mg/dL Total Bilirubin (0.2-1.3) mg/dL AST (14-36) U/L ALT (4-34) U/L Alkaline Phosphatase (38-126) U/L Creatine Kinase (30-135) U/L Troponin I (0.000-0.034) ng/mL Total Protein (6.3-8.2) g/dL Albumin (3.5-5.0) g/dL TSH 2.410 (0.465-4.680) mIU/L Urine Color Yellow Urine Appearance Cloudy H (Clear) Urine pH 8.0 (5.0-8.0) Ur Specific [place] 1.005 (1.001-1.035) Urine Protein 1+ H (Negative) Urine Glucose (UA) Negative (Negative) Urine Ketones Negative (Negative) Urine Blood Negative (Negative) Urine Nitrite Negative (Negative) Urine Bilirubin Negative (Negative) Urine Urobilinogen <2.0 (<2.0) mg/dL Ur Leukocyte Esterase Negative (Negative) Urine RBC 2 (0-5) /hpf Urine WBC 32 H (0-5) /hpf Ur Squamous Epith Cells 2 (0-4) /hpf Hyaline Casts 10 H (0-2) /lpf Urine Mucus Moderate H (None) /hpf Influenza Type A RNA (Not Detectd) Influenza Type B (PCR) (Not Detectd) - Radiology Data Radiology results: report reviewed, image reviewed (I did review the imaging and report no acute findings) Disposition Clinical Impression: Urinary tract infection, Dehydration, Febrile illness, acute Disposition: HOME SELF-CARE Condition: Good Instructions (If sedation given, give patient instructions): Urinary Tract Infection in Women (ED), Dehydration (ED), Fever in Adults (ED) Additional Instructions: Prescription trace anterior wall times pharmacy Prescriptions: Cephalexin [Keflex] 500 mg PO Q6HR #28 cap Is patient prescribed a controlled substance at d/c from ED?: No Referrals: None,Stated [REFERRING] - 1-2 days
[2019-04-25 08:08] LABS: Basophils % (A) 0 %; Eosinophils # (A) 0.1 k/uL (0-0.7); Eosinophils % (A) 1 %; HCT 37.1 % (34.0-46.0); Lymphocytes % (A) 11 %; MCH 29.3 pg (25.0-35.0); MCHC 34.9 g/dL (31.0-37.0); MCV 83.8 fL (80.0-100.0); Mean Platelet Volume 7.3; Monocytes # (A) 0.4 k/uL (0-1.0); Monocytes % (A) 4 %; Neutrophils # (A) 7.5 k/uL (1.3-7.7); Neutrophils % (A) 83 %; Platelet Count 263 k/uL (150-450); RBC 4.43 m/uL (3.80-5.40); RDW 14.2 % (11.5-15.5)
[2019-04-25 08:17] VITALS: RESP 17; TEMP 99.8
[2019-04-25 08:17] LABS: ALT 13 U/L (4-34); AST 19 U/L (14-36); African American GFR (CKD) >90 (>60 ml/min/1.73 sqM); Albumin 3.7 g/dL (3.5-5.0); Alkaline Phosphatase 93 U/L (38-126); Anion Gap 9 mmol/L; Blood Urea Nitrogen 11 mg/dL (7-17); Calcium 8.4 mg/dL (8.4-10.2); Carbon Dioxide 25 mmol/L (22-30); Chloride 104 mmol/L (98-107); Creatine Kinase 42 U/L (30-135); Glucose 160 mg/dL (74-99); Magnesium 1.6 mg/dL (1.6-2.3); Non-African American GFR(CKD) >90 (>60 ml/min/1.73 sqM); Potassium 3.3 mmol/L (3.5-5.1); Sodium 138 mmol/L (137-145); Total Bilirubin 0.6 mg/dL (0.2-1.3); Total Protein 6.7 g/dL (6.3-8.2)
[2019-04-25 08:18] LABS: INR 0.9 (<1.2); Partial Thromboplastin Time 24.8 sec (22.0-30.0); Prothrombin Time 9.8 sec (9.0-12.0)
--- NOTE | 2019-04-25 08:53 | XR ---
EXAMINATION TYPE: XR chest 2V DATE OF EXAM: 04/25/2019 COMPARISON: 11/23/2017 INDICATION: Weakness acute mental status changes TECHNIQUE: Frontal and lateral views of the chest are obtained. FINDINGS: The heart size is normal. The pulmonary vasculature is upper limits of normal. The lungs are clear. IMPRESSION: 1. No acute pulmonary process.
[2019-04-25 09:21] LABS: Appearance,Urine Cloudy (Clear); Color,Urine Yellow; Protein,Urine 1+ (Negative); Specific Gravity,Urine 1.005 (1.001-1.035)
[2019-04-25 09:22] LABS: Bilirubin,Urine Negative (Negative); Blood,Urine Negative (Negative); Glucose,Urine (UA) Negative (Negative); Ketones,Urine Negative (Negative); Nitrite,Urine Negative (Negative); Urobilinogen,Urine <2.0 mg/dL (<2.0)
[2019-04-25 09:25] LABS: RBC,Urine 2 /hpf (0-5); Squamous Epithelial Cell,Urine 2 /hpf (0-4); WBC,Urine 32 /hpf (0-5)
[2019-04-25 09:26] LABS: Hyaline Casts,Urine 10 /lpf (0-2); Mucus,Urine Moderate /hpf
[2019-04-25 11:17] VITALS: BP 160/62; PULSE 84
[2019-04-25] MEDS ORDERED: CEPHALEXIN 500MG STARTER PACK 4 CAP BTL PO STA (11:37)
[2019-04-26 11:30] LABS: Leukocyte Esterase,Urine Large (Negative)
== END 2019-04-25 12:00 | disposition home or self-care (01) ==
LOC: EC 07:43
DX: E86.0 Dehydration (principal); N39.0 Urinary tract infection, site not specified; R53.1 Weakness; R09.89 Other specified symptoms and signs involving the circulatory and respiratory systems; I10 Essential (primary) hypertension; M19.90 Unspecified osteoarthritis, unspecified site; F41.9 Anxiety disorder, unspecified; Z88.5 Allergy status to narcotic agent; Z79.899 Other long term (current) drug therapy; Z96.698 Presence of other orthopedic joint implants
CPT/HCPCS: 36415; 71046; 80053; 81001; 82550; 83605; 83735; 84443; 84484; 85025; 85610; 85730; 87040; 87077; 87086; 87186; 87502; 93005; 96360; 96361; 99285

== ENCOUNTER → 2019-05-10 | Outpatient (CLI) | payer MEDICARE, OTHER ==
--- NOTE | 2019-05-13 08:05 | MM ---
Reason for exam: screening (asymptomatic). Last mammogram was performed 1 year and 2 months ago. History: Patient is postmenopausal and is nulliparous. Family history of breast cancer in sister and breast cancer in mother. Took estrogen for 37 years beginning at age 16. Physical Findings: A clinical breast exam by your physician is recommended on an annual basis and results should be correlated with mammographic findings. MG 3D Screening Mammo W/Cad Bilateral CC and MLO view(s) were taken. Prior study comparison: March 01, 2018, bilateral MG 3d screening mammo w/cad. January 06, 2017, bilateral MG 3d screening mammo w/cad. There are scattered fibroglandular densities. Benign appearing bilateral calcifications. No suspicious abnormality. No significant changes when compared with prior studies. ASSESSMENT: Benign, BI-RAD 2 RECOMMENDATION: Routine screening mammogram of both breasts in 1 year.
== END | disposition home or self-care (01) ==
LOC: RADMAMWWP 13:16
PROVIDERS: ATTEND General Practice
DX: Z12.31 Encounter for screening mammogram for malignant neoplasm of breast (principal)
CPT/HCPCS: 77063; 77067

== ENCOUNTER → 2020-09-22 | Outpatient (CLI) | payer MEDICARE, OTHER ==
--- NOTE | 2020-09-22 13:03 | MM ---
Reason for exam: screening (asymptomatic). Last mammogram was performed 1 year and 4 months ago. History: Patient is postmenopausal and is nulliparous. Family history of breast cancer in sister and breast cancer in mother. Took estrogen for 37 years beginning at age 16. Physical Findings: A clinical breast exam by your physician is recommended on an annual basis and results should be correlated with mammographic findings. MG 3D Screening Mammo W/Cad Bilateral CC and MLO view(s) were taken. Prior study comparison: May 10, 2019, bilateral MG 3d screening mammo w/cad. March 01, 2018, bilateral MG 3d screening mammo w/cad. There are scattered fibroglandular densities. ASSESSMENT: Negative, BI-RAD 1 RECOMMENDATION: Routine screening mammogram of both breasts in 1 year.
== END | disposition home or self-care (01) ==
LOC: RADMAMWWP 09:48
PROVIDERS: ATTEND General Practice
DX: Z12.31 Encounter for screening mammogram for malignant neoplasm of breast (principal)
CPT/HCPCS: 77063; 77067

== ENCOUNTER → 2020-12-22 | Outpatient (CLI) | payer MEDICARE, OTHER ==
[2020-12-22 16:36] LABS: Basophils # (A) 0.02 X 10*3/uL (0.00-0.10); Basophils % (A) 0.2 %; Eosinophils # (A) 0.07 X 10*3/uL (0.04-0.35); Eosinophils % (A) 0.7 %; HGB 13.4 g/dL (12.0-15.0); Lymphocytes # (A) 2.01 X 10*3/uL (0.90-5.00); Lymphocytes % (A) 19.1 %; MCH 31.3 pg (27.0-32.0); MCHC 33.5 g/dL (32.0-37.0); MCV 93.5 fL (80.0-97.0); Mean Platelet Volume 11.6 fL (9.5-12.2); Monocytes % (A) 6.6 %; Neutrophils # (A) 7.68 X 10*3/uL (1.80-7.70); Neutrophils % (A) 72.9 %; Platelet Count 287 X 10*3/uL (140-440); RBC 4.28 X 10*6/uL (4.10-5.20); RDW 13.2 % (11.5-14.5); WBC 10.53 X 10*3/uL (4.50-10.00)
[2020-12-22 19:10] LABS: Albumin 4.1 g/dL (3.8-4.9); Albumin/Globulin Ratio 1.66 (1.60-3.17); Anion Gap 15.5 mmol/L (4.00-12.00); BUN/Creat Ratio 20.77 Ratio (12.00-20.00); Blood Urea Nitrogen 16.1 mg/dL (9.0-27.0); Calcium 9.1 mg/dL (8.7-10.3); Chol/HDL Ratio 2.56 Ratio; Globulin 2.5 g/dL (1.6-3.3); HDL Cholesterol 60.2 mg/dL (40.00-60.00); LDL Cholesterol,Calculated 75.2 mg/dL (0.0-131.0); Non-African American GFR(CKD) 77.6 (60.0-200.0); Potassium 4.6 mmol/L (3.5-5.5); Total Bilirubin 0.3 mg/dL (0.30-1.20); Total Protein 6.6 g/dL (6.2-8.2); VLDL Calculation 18.6 mg/dL (5.00-40.00)
[2020-12-23 12:50] LABS: Urine Creatinine 59.4 mg/dL (28.0-217.0)
== END | disposition home or self-care (01) ==
LOC: LABWHC1 09:19
PROVIDERS: ATTEND General Practice
DX: E11.9 Type 2 diabetes mellitus without complications (principal); I10 Essential (primary) hypertension
CPT/HCPCS: 36415; 80053; 80061; 82043; 82570; 83036; 84443; 85025

== ENCOUNTER 2021-05-12 09:05 | Day surgery (SDC) | payer MEDICARE, OTHER ==
[2021-05-10 14:25] VITALS: BMI 26.7
[~2021-05-12 09:05] MED LIST changes: -ATROPINE SULFATE 0.1 MG/ML 10ML SYRINGE ONE; -DOBUTamine DRIP for NUC MED 500 MG in DEXTROSE/WATER 1 250ML.BAG IV ONE; +LIDOCAINE 1% (10MG/ML) FOR IV START INTRADERMA PRN; -METOPROLOL TARTRATE 5 MG/5 ML VIAL IVP ONE
[2021-05-12] MEDS: LACTATED RINGERS 1,000 ML IV SCH ×2 (09:17→10:09)
[2021-05-12 09:29] VITALS: TEMP 96.7
[2021-05-12] MEDS ORDERED: PROPOFOL 10 MG/ML 20 ML VIAL IV ONE (10:10)
--- NOTE | 2021-05-12 10:26 | P.PCN ---
Date of Procedure: 05/12/21 Procedure(s) Performed: BRIEF HISTORY: Patient is a 71-year-old, pleasant, white female with long- standing history of GERD scheduled for an upper endoscopy as a part of evaluation of progressive dysphagia to solids for the last 6 months duration. She is been on Pepcid 20 mg twice daily and recently was changed to omeprazole 20 mg twice daily.. PROCEDURE PERFORMED: Esophagogastroduodenoscopy with biopsy. PREOPERATIVE DIAGNOSIS: Results and history of GERD and progressive dysphagia to solids. IV sedation per anesthesia. PROCEDURE: After informed consent was obtained, the patient was brought into the endoscopy unit. IV sedation was administered by Anesthesia under continuous monitoring. Initially the Olympus GIF-140 video endoscope was inserted into the mouth. Esophagus intubated without any difficulty. It was gradually advanced into the distal esophagus. There was a distal esophageal stricture identified at 35 cm from the incisors and with gentle pressure I was able to advance the scope into the stomach and duodenum and carefully examined. The bulb and the second part of the duodenum appeared normal. The scope at this time was withdrawn to the stomach, adequately insufflated with air, and upon careful examination, mucosa of the antrum, body had mild diffuse gastritis and biopsies were done from this area. The, cardia and the fundus appeared normal. The scope was then withdrawn into the esophagus. The GE junction was located at 35 cm from the incisors. There was some oozing noted at the site of dilation. There was questionable Farah's appearing mucosa extending from 30-35 cm from the incisors and multiple biopsies were done from this area. The rest of esophagus appeared normal. There were just proximal to the proximal esophagus which were biopsied. The patient tolerated the procedure well. IMPRESSION: 1. Distal esophageal stricture status post dilation with passage of the scope. 2. Questionable 2 cm length of Farah's-appearing mucosa status post biopsy 3. Whitish plaques in the proximal esophagus status post biopsy to rule out Lynn esophagitis 4. Mild diffuse gastritis. RECOMMENDATIONS: The findings of this examination were discussed with the patient the lesser family. She was advised to follow with the biopsy results. Continue with omeprazole 20 mg twice daily and she'll be seen in office in 3 months. If she continues to have persistent dysphagia and plan a repeat upper endoscopy.
[2021-05-12 10:32] VITALS: RESP 18
[2021-05-12 10:47] VITALS: BP 135/83; PULSE 85
== END 2021-05-12 11:10 | disposition home or self-care (01) ==
LOC: ORWHC2ENDO 09:05
PROVIDERS: ATTEND Internal Medicine Gastroenterology
DX: K29.50 Unspecified chronic gastritis without bleeding (principal); K21.9 Gastro-esophageal reflux disease without esophagitis; B37.81 Candidal esophagitis; Z97.2 Presence of dental prosthetic device (complete) (partial); F41.9 Anxiety disorder, unspecified; Z90.710 Acquired absence of both cervix and uterus; F32.A Depression, unspecified; Z79.899 Other long term (current) drug therapy; Z88.5 Allergy status to narcotic agent
CPT/HCPCS: 88305; 88312; 43239; J2704

== ENCOUNTER → 2021-09-23 | Outpatient (CLI) | payer MEDICARE, OTHER ==
--- NOTE | 2021-09-24 08:09 | MM ---
Reason for Exam: Screening (asymptomatic). Last screening mammogram was performed 12 month(s) ago. Patient History: Menarche at age 13. Patient has no children. Left ovary removed at age 16. Right ovary removed at age 16. Hysterectomy at age 16. Postmenopausal. Estrogen for 37 years from age 16 until age 53. Sister had breast cancer. Mother had breast cancer. Risk Values: Criselda 5 year model risk: 6.0%. NCI Lifetime model risk: 15.8%. Prior Study Comparison: 11/28/2014 Bilateral Screening Mammogram, [facility]. 12/11/2015 Bilateral Screening Mammogram, [facility]. 01/06/2017 Bilateral Screening Mammogram, [facility]. 03/01/2018 Bilateral Screening Mammogram, [facility]. 05/10/2019 Bilateral Screening Mammogram, [facility]. 09/22/2020 Bilateral Screening Mammogram, [facility]. Tissue Density: The breast tissue is heterogeneously dense. This may lower the sensitivity of mammography. Findings: Analyzed By CAD. There is no suspicious group of microcalcifications or new suspicious mass in either breast. Overall Assessment: Benign, BI-RAD 2 Management: Screening Mammogram of both breasts in 1 year. A clinical breast exam by your physician is recommended on an annual basis and results should be correlated with mammographic findings. Electronically signed and approved by: Clint Honeycutt M.D. Radiologis
== END | disposition home or self-care (01) ==
LOC: RADMAMWWP 10:54
PROVIDERS: ATTEND General Practice
DX: Z12.31 Encounter for screening mammogram for malignant neoplasm of breast (principal)
CPT/HCPCS: 77063; 77067

== ENCOUNTER 2022-05-23 16:16 | Inpatient (IN) | payer MEDICARE, OTHER ==
--- NOTE | 2022-05-23 16:58 | ED ---
General Adult HPI - General Chief complaint: Extremity Injury, Lower Stated complaint: Fall Time Seen by Provider: 05/23/22 16:20 Source: patient, RN notes reviewed, old records reviewed Mode of arrival: EMS Limitations: no limitations - History of Present Illness Initial comments: This is a 72-year-old female presents emergency Department complaining that she fell this morning when she tripped over some and also foot she hurt her right knee. Patient also is a little developmentally delayed it is difficult to assess exactly where her pain is because if you ask her most questions according to the staff she will say it does hurt. Staff says she is also very dramatic. She denies hitting her head or neck patient denies any chest or back patient d enies any abdominal pain patient denies any other extremity pain. - Related Data Home Medications Medication Instructions Recorded Confirmed busPIRone HCL 15 mg PO BID 08/22/16 05/10/21 Acetaminophen [Tylenol Arthritis] 650 mg PO TID 05/10/21 05/10/21 Megestrol Acetate 20 mg PO BID 05/10/21 05/10/21 Mirtazapine [Remeron] 15 mg PO HS 05/10/21 05/10/21 Multivitamins, Thera [Multivitamin 1 tab PO DAILY 05/10/21 05/10/21 (formulary)] OLANZapine 5 mg PO HS 05/10/21 05/10/21 Omeprazole 20 mg PO BID 05/10/21 05/10/21 Tolterodine ER [Detrol LA] 4 mg PO DAILY 05/10/21 05/10/21 lisinopriL [Zestril] 20 mg PO DAILY 05/10/21 05/12/21 Allergies Allergy/AdvReac Type Severity Reaction Status Date / Time codeine Allergy Unknown Verified 05/23/22 16:24 Review of Systems ROS Statement: Those systems with pertinent positive or pertinent negative responses have been documented in the HPI. ROS Other: All systems not noted in ROS Statement are negative. 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 History of Any Multi-Drug Resistant Organisms: None Reported Past Surgical History: Cholecystectomy, Hysterectomy, Orthopedic Surgery Additional Past Surgical History / Comment(s): amputation of two toes on both feet, plates and screws in left foot Past Anesthesia/Blood Transfusion Reactions: No Reported Reaction, Unable to Obtain Additional Past Anesthesia/Blood Transfusion Reaction / Comment(s): [facility] at [facility] Past Psychological History: Anxiety, Depression, Schizophrenia Smoking Status: Never smoker Past Alcohol Use History: None Reported Past Drug Use History: None Reported - Past Family History Mother Family Medical History: Unable to Obtain General Exam - General Exam Comments Initial Comments: GENERAL: Patient is well-developed and well-nourished. Patient is nontoxic and well- hydrated and is in mild distress. ENT: Neck is soft and supple. No significant lymphadenopathy is noted. Oropharynx is clear. Moist mucous membranes. Neck has full range of motion without eliciting any pain. EYES: The sclera were anicteric and conjunctiva were pink and moist. Extraocular movements were intact and pupils were equal round and reactive to light. Eyelids were unremarkable. SKIN: Skin is clear with no lesions or rashes and otherwise unremarkable. NEUROLOGIC: Patient is alert and oriented 2. Cranial nerves II through XII are grossly intact. Motor and sensory are also intact. Normal speech, volume and content. Symmetrical smile. MUSCULOSKELETAL: Patient has some tenderness to the lateral right hip but when you distract her she has no tenderness. Patient also has tenderness to the anterior knee again with distraction she doesn't seem to be quite as tender. LYMPHATICS: No significant lymphadenopathy is noted PSYCHIATRIC: Patient is developmentally delayed it is difficult to assess her psychiatric baseline. Limitations: no limitations Course Vital Signs 05/23/22 05/23/22 05/23/22 16:18 17:52 19:12 Temperature 99.1 F Pulse Rate 98 87 91 Respiratory 18 18 18 Rate Blood Pressure 167/90 119/94 147/91 O2 Sat by Pulse 93 L 94 L 93 L Oximetry Medical Decision Making - Medical Decision Making EKG was interpreted by myself shows a sinus rhythm at 92 bpm [place] interval 253 QRSs 83 QT interval 3:30 QTC is 380. Patient's EKG shows no ST segment el evation or depression. Was pt. sent in by a medical professional or institution (, PA, IRRIGATOR HEAD, urgent care, hospital, or half-way...) When possible be specific @ -Patient was sent in by people at the adult foster care Did you speak to anyone other than the patient for history (EMS, parent, family, police, friend...)? What history was obtained from this source @ -The person that came with her emesis or develop also care gave most of the history Did you review nursing and triage notes (agree or disagree)? Why? @ -I reviewed and agree with nursing and triage notes Were old charts reviewed (outside hosp., previous admission, EMS record, old EKG, old radiological studies, urgent care reports/EKG's, half-way records)? Report findings @ -No old charts were reviewed Differential Diagnosis (chest pain, altered mental status, abdominal pain women, abdominal pain men, vaginal bleeding, weakness, fever, dyspnea, syncope, headache, dizziness, GI bleed, back pain, seizure, CVA, palpatations, mental health, musculoskeletal)? @ -Differential Musculoskeletal Muscular strain, contusion, ligament sprain, fracture, arthritis, septic arthritis, bursitis, cellulitis, muscle spasm, nerve compression, DVT, arterial occlusion, herpes zoster, electrolyte abnormality, tumor.... This is not meant to be in all inclusive list EKG interpreted by me (3pts min.). @ -As above X-rays interpreted by me (1pt min.). @ -I interpreted the chest x-ray. Chest x-ray shows no acute abnormality. I interpreted the x-ray of the knee. X-ray showed no acute abnormality. I interpreted the x-ray of the hip. X-ray of the hip showed a subcapital fracture of the right hip CT interpreted by me (1pt min.). @ -None done U/S interpreted by me (1pt. min.). @ -None done What testing was considered but not performed or refused? (CT, X-rays, U/S, labs)? Why? @ -None What meds were considered but not given or refused? Why? @ -None Did you discuss the management of the patient with other professionals (professionals i.e. , PA, IRRIGATOR HEAD, lab, RT, psych nurse, social media project manager, forcer maker, teacher, sea air land officer, counseling case manager)? Give summary @ -I spoke with Dr. Wetzel and she agreed to admit the patient Was smoking cessation discussed for >3mins.? @ -No Was critical care preformed (if so, how long)? @ -No Were there social determinants of health that impacted care today? How? (Homelessness, low income, unemployed, alcoholism, drug addiction, transportation, low edu. Level, literacy, decrease access to med. care, [facility], rehab)? @ -No Was there de-escalation of care discussed even if they declined (Discuss DNR or withdrawal of care, Hospice)? DNR status @ -No What co-morbidities impacted this encounter? (DM, HTN, Smoking, COPD, CAD, Cancer, CVA, ARF, Chemo, Hep., AIDS, mental health diagnosis, sleep apnea, morbid obesity)? @ -None Was patient admitted / discharged? Hospital course, mention meds given and route, prescriptions, significant lab abnormalities, going to OR and other pertinent info. @ -Patient was only complaining of knee pain when she arrived however she was inconsistent with her history so I decided to in addition to the knee x-ray of the hip. Hip x-ray showed a subcapital fracture of the right hip. I spoke with Dr. Smith she agreed to admit the patient admitted the patient I consulted medicine. Undiagnosed new problem with uncertain prognosis? @ -No Drug Therapy requiring intensive monitoring for toxicity (Heparin, Nitro, Insulin, Cardizem)? @ -No Were any procedures done? @ -No Diagnosis/symptom? @ -Subcapital right hip fracture Acute, or Chronic, or Acute on Chronic? @ -Acute Uncomplicated (without systemic symptoms) or Complicated (systemic symptoms)? @ -Complicated Side effects of treatment? @ -No Exacerbation, Progression, or Severe Exacerbation? @ -No Poses a threat to life or bodily function? How? (Chest pain, [place], [place], pneumonia, PE, COPD, DKA, ARF, appy, cholecystitis, CVA, Diverticulitis, Homicidal, Suicidal, threat to staff... and all critical care pts) @ -No Diagnosis/symptom? @ -Rib fracture Acute, or Chronic, or Acute on Chronic? @ -Acute Uncomplicated (without systemic symptoms) or Complicated (systemic symptoms)? @ -Uncomplicated Side effects of treatment? @ -none Exacerbation, Progression, or Severe Exacerbation] @ -no Poses a threat to life or bodily function? @ -no - Lab Data Result diagrams: 05/23/22 18:05 Lab Results 05/23/22 Range/Units 18:05 WBC 11.6 H (3.8-10.6) k/uL RBC 4.38 (3.80-5.40) m/uL Hgb 13.8 (11.4-16.0) gm/dL Hct 39.8 (34.0-46.0) % MCV 91.0 (80.0-100.0) fL MCH 31.6 (25.0-35.0) pg MCHC 34.7 (31.0-37.0) g/dL RDW 12.7 (11.5-15.5) % Plt Count 224 (150-450) k/uL MPV 7.4 Neutrophils % 82 % Lymphocytes % 11 % Monocytes % 6 % Eosinophils % 1 % Basophils % 0 % Neutrophils # 9.5 H (1.3-7.7) k/uL Lymphocytes # 1.2 (1.0-4.8) k/uL Monocytes # 0.6 (0-1.0) k/uL Eosinophils # 0.1 (0-0.7) k/uL Basophils # 0.0 (0-0.2) k/uL Disposition Clinical Impression: Fracture of hip, Rib fracture Disposition: ADMITTED IP TO THIS [facility] Time of Disposition: 18:53
[2022-05-23] MEDS ORDERED: HYDROmorphone 0.5 MG/0.5 ML SYRINGE IVP STA (18:16)
[2022-05-23] MEDS ORDERED: KETOROLAC 15 MG/ML 1 ML VIAL IVP STA (18:16)
--- NOTE | 2022-05-23 18:19 | XR ---
EXAMINATION TYPE: XR chest 1V DATE OF EXAM: 05/23/2022 6:08 PM COMPARISON: Chest radiographs from 04/25/2019 TECHNIQUE: XR chest 1V Frontal view of the chest. CLINICAL INDICATION:Female, 72 years old with history of HIP FX; FINDINGS: Lungs/Pleura: Prominent interstitial lung markings are seen scattered throughout the lungs. No eviden ce of focal consolidation, pneumothorax or pleural effusion. Pulmonary vascularity: Unremarkable. Heart/mediastinum: Cardiomediastinal silhouette is unremarkable. Musculoskeletal: Right rib 5 fracture. IMPRESSION: 1. Chronic changes without acute pulmonary process. No significant change from prior. 2. Right rib 5 fracture.
--- NOTE | 2022-05-23 18:20 | XR ---
EXAMINATION TYPE: XR Hip RT and AP Pelvis DATE OF EXAM: 05/23/2022 6:08 PM INDICATION: Patient age:Female; 72 years old; Reason for study: Trauma; COMPARISON: None. TECHNIQUE: The right hip was examined in the frontal and lateral projections and a AP pelvis. FINDINGS: Right proximal femur fracture involving the subcapital portion of the femoral neck. There i s shortening. Soft tissues are grossly unremarkable. Left hip appears intact. No additional fractures visualized. Degeneration changes of the lower spine. IMPRESSION: Right subcapital femoral neck fracture with shortening.
--- NOTE | 2022-05-23 18:21 | XR ---
EXAMINATION TYPE: XR knee limited RT DATE OF EXAM: 05/23/2022 6:08 PM INDICATION: Patient age:Female; 72 years old; Reason for study: Trauma; COMPARISON: None. TECHNIQUE: The Right knee(s) was examined in Frontal, lateral and oblique projections. FINDINGS: Suboptimal positioning limits evaluation of the tibia. No evidence of any acute osseous pa thology, soft tissue swelling, or joint effusion is noted. Tricompartmental osteophyte formation involving the femoral condyles, tibial plateau and patella. Si gnificant patellofemoral joint joint space narrowing. A fabella is present. IMPRESSION: 1. No acute osseous pathology. 2. Severe patellofemoral osteoarthritic changes.
[2022-05-23] MEDS ORDERED: SODIUM CHLORIDE 0.9% 1,000 ML IV ONE (18:53)
[2022-05-23 19:12] LABS: Basophils % (A) 0 %; Eosinophils # (A) 0.1 k/uL (0-0.7); Eosinophils % (A) 1 %; HCT 39.8 % (34.0-46.0); HGB 13.8 gm/dL (11.4-16.0); Lymphocytes # (A) 1.2 k/uL (1.0-4.8); Lymphocytes % (A) 11 %; MCH 31.6 pg (25.0-35.0); MCHC 34.7 g/dL (31.0-37.0); Mean Platelet Volume 7.4; Monocytes # (A) 0.6 k/uL (0-1.0); Monocytes % (A) 6 %; Neutrophils # (A) 9.5 k/uL (1.3-7.7); Neutrophils % (A) 82 %; Platelet Count 224 k/uL (150-450); RBC 4.38 m/uL (3.80-5.40); RDW 12.7 % (11.5-15.5); WBC 11.6 k/uL (3.8-10.6)
[2022-05-23] MEDS: HYDROmorphone 0.5 MG/0.5 ML SYRINGE IVP PRN (19:13)
[2022-05-23 19:22] LABS: ALT 21 U/L (4-34); AST 24 U/L (14-36); African American GFR (CKD) >90 (>60 ml/min/1.73 sqM); Albumin 4.3 g/dL (3.5-5.0); Alkaline Phosphatase 75 U/L (38-126); Anion Gap 6 mmol/L; Blood Urea Nitrogen 19 mg/dL (7-17); Calcium 9.2 mg/dL (8.4-10.2); Carbon Dioxide 24 mmol/L (22-30); Chloride 108 mmol/L (98-107); Glucose 143 mg/dL (74-99); Non-African American GFR(CKD) >90 (>60 ml/min/1.73 sqM); Potassium 4.5 mmol/L (3.5-5.1); Sodium 138 mmol/L (137-145); Total Bilirubin 0.5 mg/dL (0.2-1.3); Total Protein 7.3 g/dL (6.3-8.2)
--- NOTE | 2022-05-23 20:13 | P.CONS ---
History of Present Illness - Reason for Consult Consult date: 05/23/22 Medical management Requesting physician: Marylin Wetzel - Chief Complaint Fall - History of Present Illness This is a 72-year-old patient who follows with visiting physicians Dr. Puente. Patient had fallen earlier this morning and hit the right Table. Did tolerate ahead no loss of conscious. EMS noted some swelling and discoloration of the right knee. Pain in the right leg. In the ER patient was discovered to have right femur fracture. Patient does use a walker to get ab out. Patient had tripped. Denies any chest pain or shortness of breath. Patient is a slow historian. Review of systems: GEN.: Tired EYES: None HEENT: None NECK: None RESPIRATORY: None CARDIOVASCULAR: None GASTROINTESTINAL: None GENITOURINARY: None MUSCULOSKELETAL: Right hip pain LYMPHATICS: None HEMATOLOGICAL: None PSYCHIATRY: Bit forgetful NEUROLOGICAL: Uses a walker Past medical history to include: GERD, , hyperlipidemia, osteoporosis, hypothyroid, gait dysfunction, schizophrenia Social history: Lives at a half-way. No smoking and I'll call. Does use a walker Physical examination: VITAL SIGNS: Afebrile, 91, 18, 147 with 91, 93% room air GENERAL: BMI 36.6, declining but awake slightly anxious. EYES: Pupils equal. Conjunctiva normal. HEENT: External appearance of nose and ears normal, oral cavity dry mucous membranes. NECK: JVD not raised; masses not palpable. HEART: First and second heart sounds are normal; no edema. LUNGS: Respiratory rate normal; clear to auscultation. ABDOMEN: Soft, nontender, liver spleen not palpable, no masses palpable. PSYCH: Patient is able to answer simple questions. Slightly anxiousl. MUSCULOSKELETAL:No Clubbing/cyanosis;muscles-grossly intact. Limited range of motion right hip. Evidence of OA. NEUROLOGICAL: [Cranial nerves grossly intact; no facial asymmetry, sensation grossly preserved. Upper extremities able to lift arms. LYMPHATICS: No lymph nodes palpable in the axilla and neck INVESTIGATIONS, reviewed in the clinical context: White count 11.6 hemoglobin 13.8 platelets 224 potassium 4.5 BUN 19 creatinine 0.6 EKG tracing personally reviewed by me-normal sinus rhythm Chest x-ray film personally reviewed by me-right hip fracture reported Right hip x-ray: subcapital femoral fracture Assessment and plan: -Acute right femoral fracture-subcapital Pain control. Follow with orthopedic -Right fifth rib fracture secondary to fall -Essential hypertension Lisinopril 20 mg a day -GERD Omeprazole 20 mg twice a day -Chronic urinary incontinence Detrol LA -Schizophrenia, bipolar Continue home medications Perioperative cardiovascular risk assessment: Patient at her baseline uses a walker/limited exercise tolerance, does not complain of any chest pain or shortness of breath. Denies any cardiac history. Patient will be considered a moderate risk from a cardiac vascular standpoint. No absolute contraindications. Thank you Dr. 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 History of Any Multi-Drug Resistant Organisms: None Reported Past Surgical History: Cholecystectomy, Hysterectomy, Orthopedic Surgery Additional Past Surgical History / Comment(s): amputation of two toes on both feet, plates and screws in left foot Past Anesthesia/Blood Transfusion Reactions: No Reported Reaction, Unable to Obtain Additional Past Anesthesia/Blood Transfusion Reaction / Comm: no family hx at half-way Past Psychological History: Anxiety, Depression, Schizophrenia Smoking Status: Never smoker Past Alcohol Use History: None Reported Past Drug Use History: None Reported - Past Family History Mother Family Medical History: Unable to Obtain Medications and Allergies Home Medications Medication Instructions Recorded Confirmed Type busPIRone HCL 15 mg PO BID 08/22/16 05/10/21 History Acetaminophen [Tylenol Arthritis] 650 mg PO TID 05/10/21 05/10/21 History Megestrol Acetate 20 mg PO BID 05/10/21 05/10/21 History Mirtazapine [Remeron] 15 mg PO HS 05/10/21 05/10/21 History Multivitamins, Thera [Multivitamin 1 tab PO DAILY 05/10/21 05/10/21 History (formulary)] OLANZapine 5 mg PO HS 05/10/21 05/10/21 History Omeprazole 20 mg PO BID 05/10/21 05/10/21 History Tolterodine ER [Detrol LA] 4 mg PO DAILY 05/10/21 05/10/21 History lisinopriL [Zestril] 20 mg PO DAILY 05/10/21 05/12/21 History Allergies Allergy/AdvReac Type Severity Reaction Status Date / Time codeine Allergy Unknown Verified 05/23/22 19:41 Physical Exam Vitals: Vital Signs Temp Pulse Resp BP Pulse Ox 05/23/22 19:22 147/109 94 L 05/23/22 19:12 91 18 147/91 93 L 05/23/22 17:52 87 18 119/94 94 L 05/23/22 16:18 99.1 F 98 18 167/90 93 L Intake and Output 05/23/22 05/23/22 05/23/22 06:59 14:59 22:59 Other: Weight 90.718 kg Results CBC & Chem 7: 05/23/22 18:05 05/23/22 18:05 Labs: Abnormal Lab Results - Last 24 Hours (Table) 05/23/22 05/23/22 Range/Units 18:05 18:05 WBC 11.6 H (3.8-10.6) k/uL Neutrophils # 9.5 H (1.3-7.7) k/uL Chloride 108 H (98-107) mmol/L BUN 19 H (7-17) mg/dL Glucose 143 H (74-99) mg/dL
[2022-05-23] MEDS: MIRTAZAPINE 15 MG TAB PO SCH (20:25)
[2022-05-23] MEDS: OLANZapine 7.5 MG TAB PO SCH (21:10)
[2022-05-23] MEDS: busPIRone HCl 5 MG TAB PO SCH (22:07)
[2022-05-23] MEDS: ACETAMINOPHEN TAB 325 MG TAB PO SCH (22:07)
[2022-05-23] MEDS: ENOXAPARIN 40 MG/0.4 ML SYRINGE SQ SCH (22:07)
[2022-05-24 01:19] LABS: Prothrombin Time 10.3 sec (9.0-12.0)
[2022-05-24] MEDS: HYDROmorphone 0.5 MG/0.5 ML SYRINGE IVP PRN ×2 (02:23→20:30)
[2022-05-24] MEDS ORDERED: ACETAMINOPHEN TAB 325 MG TAB PO SCH (06:00)
[2022-05-24] MEDS ORDERED: busPIRone HCl 5 MG TAB PO SCH (06:00)
[2022-05-24] MEDS: ESCITALOPRAM 20 MG TAB PO SCH (06:23)
[2022-05-24] MEDS: busPIRone HCl 5 MG TAB PO SCH ×3 (06:23→18:06)
[2022-05-24] MEDS: lisinopriL 20 MG TAB PO SCH (06:23)
[2022-05-24] MEDS: ACETAMINOPHEN TAB 325 MG TAB PO SCH ×3 (06:24→18:06)
[2022-05-24] MEDS: MULTIVITAMINS, THERA 1 EACH TAB PO SCH (06:24)
[2022-05-24] MEDS: PANTOPRAZOLE 40 MG TABLET PO SCH (06:24)
[2022-05-24] MEDS: OXYBUTYNIN XL 5 MG TAB.ER.24 PO SCH (06:24)
[2022-05-24] MEDS: NYSTATIN 100,000UNIT/GM CREAM 30 GM TUBE TOPICAL SCH ×2 (06:26→18:03)
[2022-05-24] MEDS: AMMONIUM LACTATE 12% LOTION 225 GM BTL TOPICAL SCH ×2 (06:27→18:03)
[2022-05-24] MEDS: ENOXAPARIN 40 MG/0.4 ML SYRINGE SQ SCH (08:17)
[2022-05-24] MEDS ORDERED: LACTATED RINGERS 1,000 ML IV ONE (08:37)
[2022-05-24] MEDS ORDERED: ONDANSETRON 4 MG/2 ML VIAL ONE (08:42)
[2022-05-24] MEDS ORDERED: DEXAMETHASONE SOD PHOSPHATE 4 MG/ML 1 ML VIAL IVP ONE (08:45)
[2022-05-24] MEDS ORDERED: fentaNYL (PF) 50 MCG/ML 2 ML AMP IVP ONE (08:46)
--- NOTE | 2022-05-24 09:07 | P.HPOR ---
History of Present Illness H&P Date: 05/24/22 This is a 72-year-old female who is admitted for a right hip fracture after a fall. Patient is seen and evaluated at bedside today. Patient states that she lives in a long term and had a fall. Patient's past medical history is significant for schizophrenia, hypothyroidism, hyperlipidemia and GERD. Patient denies any fever/chills, numbness, weakness, tingling, abdominal pain, shortness of breath or chest pain. Review of Systems See HPI. 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 History of Any Multi-Drug Resistant Organisms: None Reported Past Surgical History: Cholecystectomy, Hysterectomy, Orthopedic Surgery Additional Past Surgical History / Comment(s): amputation of two toes on both feet, plates and screws in left foot Past Anesthesia/Blood Transfusion Reactions: No Reported Reaction, Unable to Obtain Additional Past Anesthesia/Blood Transfusion Reaction / Comment(s): no family hx at long term Past Psychological History: Anxiety, Depression, Schizophrenia Additional Psychological History / Comment(s): high fuctionaing mentally challenged, claustrophobia Smoking Status: Never smoker Past Alcohol Use History: None Reported Past Drug Use History: None Reported - Past Family History Mother Family Medical History: Unable to Obtain Medications and Allergies Home Medications Medication Instructions Recorded Confirmed Type busPIRone HCL 15 mg PO TID@0600,1600,1900 08/22/16 05/23/22 History Acetaminophen [Tylenol Arthritis] 650 mg PO TID@0600,1200,1900 05/10/21 05/23/22 History Omeprazole 20 mg PO BID@0600,1600 05/10/21 05/23/22 History Tolterodine ER [Detrol LA] 4 mg PO DAILY@0600 05/10/21 05/23/22 History lisinopriL [Zestril] 20 mg PO DAILY@0600 05/10/21 05/23/22 History Ammonium Lactate Lotion 1 applic TOPICAL BID@0600,1900 05/23/22 05/23/22 History [Lac-Hydrin 12% Lotion] Ciprofloxacin HCl [Cipro] 500 mg PO BID@0600,1900 05/23/22 05/23/22 History Escitalopram [Lexapro] 20 mg PO DAILY@0600 05/23/22 05/23/22 History Loperamide HCl [Loperamide HCl 2 - 4 mg PO DIRECTED PRN 05/23/22 05/23/22 History Oral Susp] Mirtazapine 7.5 mg PO DAILY@1900 05/23/22 05/23/22 History Multivit-Min/FA/Lycopen/Lutein 1 tab PO DAILY@0605/23/22 05/23/22 History [Centrum Silver Tablet] Nystatin 100,000Unit/gm Cream 1 applic TOPICAL BID@0600,189905/23/22 05/23/22 History [Mycostatin Cream] OLANZapine 7.5 mg PO HS@199905/23/22 05/23/22 History Allergies Allergy/AdvReac Type Severity Reaction Status Date / Time codeine Allergy Unknown Verified 05/23/22 19:41 Physical Examination On exam patient is resting comfortably in bed in no acute distress. Patient is alert. There is tenderness to palpation over the right hip. Calves are soft and nontender to palpation. Sensation intact bilateral lower extremities. Neurovascular status and circulatory status are intact. Exams of the head, neck, bilateral upper extremities and left lower extremity are within normal limits. Results X-rays of the right hip and pelvis reveal a right femoral neck fracture. - Labs Labs: Abnormal Lab Results - Last 24 Hours (Table) 05/23/22 05/23/22 Range/Units 18:05 18:05 WBC 11.6 H (3.8-10.6) k/uL Neutrophils # 9.5 H (1.3-7.7) k/uL Chloride 108 H (98-107) mmol/L BUN 19 H (7-17) mg/dL Glucose 143 H (74-99) mg/dL H & H 05/23/22 Range/Units 18:05 Hgb 13.8 (11.4-16.0) gm/dL Hct 39.8 (34.0-46.0) % Coagulation 05/24/22 Range/Units 00:20 INR 1.0 (<1.2) Result Diagrams: 05/23/22 18:05 05/23/22 18:05 Assessment and Plan (1) Fracture of femoral neck, right Current Visit: Yes Status: Acute Code(s): S72.001A - FRACTURE OF UNSP PART OF NECK OF RIGHT FEMUR, INIT SNOMED Code(s): 3400136 (2) Fracture of hip Current Visit: Yes Status: Acute Code(s): S72.009A - FRACTURE OF UNSP PART OF NECK OF UNSP FEMUR, INIT SNOMED Code(s): 882784652 Plan: 1. Patient is NPO. 2. X-rays are reviewed and discussed with the patient at bedside today. 3. Planning for right hip hemiarthroplasty today pending medical clearance and patient consent.
[2022-05-24] MEDS ORDERED: SODIUM CHLORIDE 0.9% 100 ML BAG ONE (10:38)
[2022-05-24] MEDS ORDERED: GLYCOPYRROLATE 0.2 MG/ML 2 ML VIAL ONE (10:38)
[2022-05-24] MEDS ORDERED: KETAMINE 10 MG/ML 20 ML VIAL ONE (10:38)
[2022-05-24] MEDS ORDERED: ROCURONIUM 10 MG/ML (5 ML VIAL) IV ONE (10:38)
[2022-05-24] MEDS ORDERED: fentaNYL (PF) 50 MCG/ML 2 ML AMP ONE (10:38)
[2022-05-24] MEDS ORDERED: LIDOCAINE 2% INJ 20 MG/ML (2 ML VIAL) ONE (10:38)
[2022-05-24] MEDS ORDERED: PHENYLEPHRINE-0.9% NACL SYG 1,000 MCG/10 ML SYRINGE ONE (10:38)
[2022-05-24] MEDS ORDERED: MIDAZOLAM 2 MG/2 ML VIAL ONE (10:38)
[2022-05-24] MEDS ORDERED: SUCCINYLCHOLINE CHLORIDE 200 MG/10 ML VIAL IV ONE (10:38)
[2022-05-24] MEDS ORDERED: ceFAZolin 1,000 MG VIAL ONE (10:38)
[2022-05-24] MEDS ORDERED: NEOSTIGMINE 1 MG/ML 10 ML VIAL ONE (10:38)
[2022-05-24] MEDS ORDERED: PROPOFOL 10 MG/ML 20 ML VIAL IV ONE (10:38)
[2022-05-24] MEDS ORDERED: ROPIVACAINE 5 MG/ML 30 ML VIAL MISCELLANE ONE (10:43)
[2022-05-24] MEDS ORDERED: ceFAZolin 1,000 MG VIAL IVPB ONE (11:06)
[2022-05-24] MEDS ORDERED: ceFAZolin 1,000 MG in SODIUM CHLORIDE 0.9% 1,000 ML IRRIGATION ONE (11:22)
--- NOTE | 2022-05-24 11:49 | P.OP ---
Date of Procedure: 05/24/22 Preoperative Diagnosis: Subcapital fracture right hip Postoperative Diagnosis: Subcapital fracture right hip Procedure(s) Performed: Right hip hemiarthroplasty with a direct anterior approach Implants: Madden and nephew Polarstem size 2 standard with a collar Madden [employer] Nephew tandem unipolar, 43 mm Madden [employer] Nephew tandem unipolar 12/14 taper sleeve, -3 mm All components were press-fit. Anesthesia: GETA Surgeon: Johnathon Barrios Opto Mechanical Engineer #1: Nola Vasquez Estimated Blood Loss (ml): 150 Pathology: other (Femoral head) Condition: stable Disposition: PACU Indications for Procedure: This is a 72-year-old female that sustained a ground-level fall and has a subcapital fracture of her right hip. After discussing the injury and treatment options at length with her and her caregivers, I recommended a right hip hemiarthroplasty. Informed consent was obtained. Operative Findings: The operative findings are consistent with a subcapital fracture of the right hip Description of Procedure: The patient was seen and evaluated in the preoperative area and the consent was reviewed. The operative site was marked with a skin marker. The patient verified the procedure and operative site. The patient was then brought to the operating room and given preoperative antibiotics intravenously. A general anesthetic was administered by the anesthesia department. The patient was then placed on the [place] table with the bony prominences well-padded. The hip area was then prepped with a ChloraPrep solution and draped in the usual sterile fashion. A universal timeout was then performed, which confirmed the patient's name, surgical site, ALLERGIES, and procedure being performed on the consent. Next the incision site was located at 1 cm distal and 4 cm lateral to the anterior superior iliac spine. The skin and subcutaneous tissues were sharply incised. Incision was carefully dissected down to the fascia overlying the tensor fascia constantin muscle. This fascia was then incised in line with the muscle fibers. Care was taken to stay laterally in order to avoid injuring the lateral femoral cutaneous nerve. Next, using blunt finger dissection, the tensor fascia constantin muscle was dissected off its investing fascia. The muscle was then carefully retracted laterally with a cobra retractor over the lateral neck of the femur. Next, the circumflex vessels were identified and cauterized using the Aquamantis device. The anterior hip capsule was then exposed. The capsule was then opened and an inverted T fashion. The retractors were then placed intracapsularly. The retractors were maintained intracapsular throughout the procedure. The proximal femur was then visualized. The subcapital fracture was readily visualized. A small amount of traction was placed on the leg. The femoral neck was then osteotomized at the appropriate level above the lesser trochanter. Next, using a corkscrew the femoral head was removed from the acetabulum. The femoral head was then measured and the acetabulum was inspected. Attention was then directed to the femur. With the aid of the [place] table, the femur was externally rotated to approximately 130, extended, and adducted under the opposite leg. A side hook was then placed under the proximal femur, and the side hook elevator was used to elevate the proximal femur while releasing the capsule. Retractors were then placed. A capsular release was performed, as well as a release of the conjoined tendon, which afforded excellent visualization of the proximal femur. Next, a box osteotome was used to lateralize the proximal femur. A hand pattern marker was then used to locate the femoral canal. Sequential broaching was then performed with appropriate size which afforded excellent fixation in the proximal femur. A trial was then placed with appropriate head and neck, and the hip was gently reduced with the aid of the [place] table. Fluoroscopy was then used to check position of the components, as well as to evaluate the leg lengths and offset. The leg lengths and offset were measured as closely as possible to ensure stability of the hip. The hip was then gently dislocated and the trials were then removed. Final implants were then impacted and the hip was again reduced. Final fluoroscopic x-rays confirmed that the components were in anatomic position. The leg lengths and offset were measured and were found to coincide with the trial measurements. The hip was also taken through range of motion, and found to be stable. The hip was then copiously irrigated with antibiotic solution with pulsatile lavage. The hip was then irrigated with Irrisept solution. The soft tissues were then injected with a ropivacaine solution. The fascia was then closed with 2-0 strata fix suture. The subcutaneous tissue was closed with 3-0 Vicryl. The subcuticular tissue was closed with 3-0 strata fix suture. The skin was then closed with Exofin skin glue. After the glue and dried, and Optifoam silver impregnated dressing was applied. The patient was then transferred to the recovery room in stable condition. The rehabilitation assistant ROSALEE Paredes was required due to the complexity of surgery, and the need for skilled yard assistant for positioning, draping, exposure, retraction, and closure of the wound.
[2022-05-24] MEDS ORDERED: MAGNESIUM HYDROXIDE 2,400 MG/10 ML CUP PO PRN (12:13)
[2022-05-24] MEDS ORDERED: HYDROmorphone 0.5 MG/0.5 ML SYRINGE IVP PRN ×2 (12:13)
[2022-05-24] MEDS ORDERED: NALOXONE 0.4 MG/ML 1 ML VIAL IV PRN (12:13)
--- NOTE | 2022-05-24 12:14 | XR ---
Fluoroscopy INDICATION: Pain FINDINGS: Fluoroscopy time: 9 seconds. DAP: 0.3466 mGycm^2 Images obtained: 3. IMPRESSIONS: 1. Documentation of fluoroscopy. Right hip replacement.
--- NOTE | 2022-05-24 12:20 | FL ---
Fluoroscopy INDICATION: Pain FINDINGS: Fluoroscopy time: 9 seconds. DAP: 0.3466 mGycm^2 Images obtained: 2. IMPRESSIONS: 1. Documentation of fluoroscopy.
[2022-05-24] MEDS: SODIUM CHLORIDE 0.9% 1,000 ML IV SCH ×2 (12:22→13:24)
--- NOTE | 2022-05-24 12:46 | XR ---
EXAMINATION TYPE: XR Hip Limited RT DATE OF EXAM: 05/24/2022 COMPARISON: None HISTORY: Posthip replacement TECHNIQUE: Single AP view right hip FINDINGS: Right femoral prosthesis was placed. No acute fractures are evident. Some postsurgical soft tissue ch anges are evident IMPRESSION: 1. No acute fractures post right hip replacement
[2022-05-24] MEDS: MIRTAZAPINE 15 MG TAB PO SCH (18:08)
--- NOTE | 2022-05-24 19:49 | P.PN ---
Progress Note - Text Progress Note Date: 05/24/22 - Chief Complaint Fall Hospital course This is a 72-year-old patient who follows with visiting physicians Dr. Puente. Patient had fallen earlier this morning and hit the right Table. Did tolerate ahead no loss of conscious. EMS noted some swelling and discoloration of the right knee. Pain in the right leg. In the ER patient was discovered to have right femur fracture. Patient does use a walker to get about. Patient had tripped. Denies any chest pain or shortness of breath. Patient is a slow historian. 05/24/2022: Patient underwent right hip hemiarthroplasty by Dr. Barrios. Postprocedure laying in bed. Pain control. Starting a diet. No nausea vomiting. Active Medications Acetaminophen (Acetaminophen Tab 325 Mg Tab) 650 mg PO TID@0600,1200,1900 [facility] Last Admin: 05/24/22 18:06 Dose: 650 mg Buspirone HCl (Buspirone Hcl 5 Mg Tab) 15 mg PO TID@0600,1600,1900 [facility] Last Admin: 05/24/22 18:06 Dose: 15 mg Escitalopram Oxalate (Escitalopram 20 Mg Tab) 20 mg PO DAILY@0600 [facility] Last Admin: 05/24/22 06:23 Dose: 20 mg Hydromorphone HCl (Hydromorphone 0.5 Mg/0.5 Ml Syringe) 0.125 mg IVP Q3HR PRN PRN Reason: Pain Scale 1 to 3 Hydromorphone HCl (Hydromorphone 0.5 Mg/0.5 Ml Syringe) 0.5 mg IVP Q3HR PRN PRN Reason: Pain Scale 7 to 10 Hydromorphone HCl (Hydromorphone 0.5 Mg/0.5 Ml Syringe) 0.25 mg IVP Q3HR PRN PRN Reason: Pain Scale 4 to 6 Sodium Chloride (Saline 0.9%) 1,000 mls @ 70 mls/hr IV .[id number] [facility] Last Admin: 05/24/22 13:24 Dose: 70 mls/hr Cefazolin Sodium 2 gm/ Sodium (Chloride) 50 mls @ 100 mls/hr IVPB Q8H [facility]; Protocol Stop: 05/25/22 04:29 Lactic Acid (Ammonium Lactate 12% Lotion 225 Gm Btl) 1 applic TOPICAL BID@0600,1900 [facility]; Protocol Last Admin: 05/24/22 18:03 Dose: 1 applic Lisinopril (Lisinopril 20 Mg Tab) 20 mg PO DAILY@06 [facility] Last Admin: 05/24/22 06:23 Dose: 20 mg Magnesium Hydroxide (Magnesium Hydroxide 2,400 Mg/10 Ml Cup) 2,400 mg PO DAILY PRN PRN Reason: Constipation Mirtazapine (Mirtazapine 15 Mg Tab) 7.5 mg PO DAILY@190 [facility] Last Admin: 05/24/22 18:08 Dose: 7.5 mg Multivitamins (Multivitamins, Thera 1 Each Tab) 1 each PO DAILY@06 [facility] Last Admin: 05/24/22 06:24 Dose: 1 each Naloxone HCl (Naloxone 0.4 Mg/Ml 1 Ml Vial) 0.2 mg IV Q2M PRN PRN Reason: Opioid Reversal Nystatin (Nystatin 100,000unit/Gm Cream 30 Gm Tube) 1 applic TOPICAL BID@0600,190 [facility]; Protocol Last Admin: 05/24/22 18:03 Dose: 1 applic Olanzapine (Olanzapine 7.5 Mg Tab) 7.5 mg PO HS@1999 [facility] Last Admin: 05/23/22 21:10 Dose: 7.5 mg Oxybutynin Chloride (Oxybutynin Xl 5 Mg Tab.Er.24) 10 mg PO DAILY@06 [facility] Last Admin: 05/24/22 06:24 Dose: 10 mg Pantoprazole Sodium (Pantoprazole 40 Mg Tablet) 40 mg PO DAILY@0600 [facility] Last Admin: 05/24/22 06:24 Dose: 40 mg Rivaroxaban (Rivaroxaban 10 Mg Tab) 10 mg PO DAILY [facility]; Protocol Stop: 06/29/22 09:01 Senna/Docusate Sodium (Sennosides-Docusate Sodium 1 Each Tab) 2 each PO HS [facility] Tramadol HCl (Tramadol 50 Mg Tab) 50 mg PO Q6H PRN PRN Reason: Pain Scale 1 to 5 Tramadol HCl (Tramadol 50 Mg Tab) 100 mg PO QID PRN PRN Reason: Pain Scale 6 to 10 Past medical history to include: GERD, , hyperlipidemia, osteoporosis, hypothyroid, gait dysfunction, schizophrenia Social history: Lives at a skilled nursing. No smoking and I'll call. Does use a walker Physical examination: VITAL SIGNS: 97.6, 77, 16, 146/89, 94% room air GENERAL: reclining , eating EYES: Pupils equal. Conjunctiva normal. HEENT: External appearance of nose and ears normal, oral cavity dry mucous membranes. NECK: JVD not raised; masses not palpable. HEART: First and second heart sounds are normal; no edema. LUNGS: Respiratory rate normal; clear to auscultation. ABDOMEN: Soft, nontender, liver spleen not palpable, no masses palpable. PSYCH: Patient is able to answer simple questions. Slightly anxiousl. MUSCULOSKELETAL:No Clubbing/cyanosis;muscles-grossly intact. Limited range of motion right hip. Evidence of OA. k INVESTIGATIONS, reviewed in the clinical context: White count 11.6 hemoglobin 13.8 platelets 224 potassium 4.5 BUN 19 creatinine 0.6 EKG tracing personally reviewed by me-normal sinus rhythm Chest x-ray film personally reviewed by me-right hip fracture reported Right hip x-ray: subcapital femoral fracture Assessment and plan: -Acute right femoral fracture-subcapital 05/24/2022: Right hip hemiarthroplasty by Dr. Barrios -Right fifth rib fracture secondary to fall -Essential hypertension Lisinopril 20 mg a day -GERD Omeprazole 20 mg twice a day -Chronic urinary incontinence Detrol LA -Schizophrenia, bipolar Continue home medications Perioperative cardiovascular risk assessment: Patient at her baseline uses a walker/limited exercise tolerance, does not complain of any chest pain or shortness of breath. Denies any cardiac history. Patient will be considered a moderate risk from a cardiac vascular standpoint. No absolute contraindications.
[2022-05-24] MEDS: OLANZapine 7.5 MG TAB PO SCH (20:25)
[2022-05-24] MEDS: SENNOSIDES-DOCUSATE SODIUM 1 EACH TAB PO SCH (20:25)
[2022-05-25] MEDS: traMADol 50 MG TAB PO PRN ×3 (03:01→15:45)
[2022-05-25] MEDS: MULTIVITAMINS, THERA 1 EACH TAB PO SCH (06:11)
[2022-05-25] MEDS: ACETAMINOPHEN TAB 325 MG TAB PO SCH ×3 (06:11→18:12)
[2022-05-25] MEDS: PANTOPRAZOLE 40 MG TABLET PO SCH (06:11)
[2022-05-25] MEDS: OXYBUTYNIN XL 5 MG TAB.ER.24 PO SCH (06:11)
[2022-05-25] MEDS: ESCITALOPRAM 20 MG TAB PO SCH (06:12)
[2022-05-25] MEDS: busPIRone HCl 5 MG TAB PO SCH ×3 (06:12→18:13)
[2022-05-25] MEDS: lisinopriL 20 MG TAB PO SCH (06:12)
[2022-05-25] MEDS: NYSTATIN 100,000UNIT/GM CREAM 30 GM TUBE TOPICAL SCH ×2 (06:14→18:13)
[2022-05-25] MEDS: AMMONIUM LACTATE 12% LOTION 225 GM BTL TOPICAL SCH ×2 (06:14→18:13)
--- NOTE | 2022-05-25 07:41 | P.PN ---
Subjective Progress Note Date: 05/25/22 Principal diagnosis: Femoral neck fracture right hip. Status post hemiarthroplasty right hip. This is a 72-year-old female who is status post hemiarthroplasty of the right hip. She is postop day #1. She is planning discharge back to her senior living when cleared medically and stable from a PT standpoint. Vital signs are stable. Objective - Vital Signs Vital signs: Vital Signs Temp 97.9 F 05/25/22 02:00 Pulse 94 05/25/22 02:00 Resp 18 05/25/22 02:00 BP 129/73 05/25/22 02:00 Pulse Ox 97 05/25/22 07:31 FiO2 Intake & Output 05/24/22 05/25/22 05/25/22 18:59 06:59 18:59 Intake Total 1301 Output Total 1000 750 Balance 301 -750 Intake: IV 1301 Output: Urine 850 750 Estimated Blood Loss 150 Other: Voiding Method Indwelling Catheter Indwelling Catheter - Exam This is a pleasant 72-year-old female in no acute distress. She is alert and oriented 3. Exam of the right hip reveals that her dressing is clean, dry and intact. She has full foot and ankle motion without difficulty or pain. Neurovascular status to the lower extremity is intact. - Labs CBC & Chem 7: 05/23/22 18:05 05/23/22 18:05 Assessment and Plan (1) Status post hip hemiarthroplasty Current Visit: Yes Status: Acute Code(s): Z96.649 - PRESENCE OF UNSPECIFIED ARTIFICIAL HIP JOINT SNOMED Code(s): 594410838 (2) Fracture of femoral neck, right Current Visit: Yes Status: Acute Code(s): S72.001A - FRACTURE OF UNSP PART OF NECK OF RIGHT FEMUR, INIT SNOMED Code(s): 7747667 Plan: The clinical findings are discussed with the patient. We will begin physical therapy today. Her senior living states that they will be able to manage her postoperatively. We are planning discharge to the senior living tomorrow versus Monday.
[2022-05-25 08:08] LABS: Basophils % (A) 0 %; Eosinophils % (A) 0 %; HCT 31.8 % (34.0-46.0); Lymphocytes # (A) 1.4 k/uL (1.0-4.8); Lymphocytes % (A) 20 %; MCH 32.3 pg (25.0-35.0); MCV 94.9 fL (80.0-100.0); Mean Platelet Volume 7.9; Monocytes # (A) 0.7 k/uL (0-1.0); Monocytes % (A) 10 %; Neutrophils # (A) 4.6 k/uL (1.3-7.7); Neutrophils % (A) 68 %; Platelet Count 181 k/uL (150-450); RBC 3.35 m/uL (3.80-5.40); RDW 13.1 % (11.5-15.5); WBC 6.7 k/uL (3.8-10.6)
[2022-05-25 08:20] LABS: HGB 10.8 gm/dL (11.4-16.0)
[2022-05-25] MEDS: RIVAROXABAN 10 MG TAB PO SCH (08:58)
[2022-05-25] MEDS: SODIUM FERRIC GLUCONAT-SUCROSE 125 MG in SODIUM CHLORIDE 0.9% 100 ML IVPB SCH (11:39)
[2022-05-25] MEDS: SODIUM CHLORIDE 0.9% 1,000 ML IV SCH (15:45)
--- NOTE | 2022-05-25 16:36 | P.PN ---
Progress Note - Text Progress Note Date: 05/25/22 - Chief Complaint Fall Hospital course This is a 72-year-old patient who follows with visiting physicians Dr. Puente. Patient had fallen earlier this morning and hit the right Table. Did tolerate ahead no loss of conscious. EMS noted some swelling and discoloration of the right knee. Pain in the right leg. In the ER patient was discovered to have right femur fracture. Patient does use a walker to get about. Patient had tripped. Denies any chest pain or shortness of breath. Patient is a slow historian. 05/24/2022: Patient underwent right hip hemiarthroplasty by Dr. Barrios. Postprocedure laying in bed. Pain control. Starting a diet. No nausea vomiting. 05/25/2022: In bed. Pain control. Tolerating diet well. Some urinary retention. Start Flomax. Christina if needed. Drop in hemoglobin. IV Ferrlecit. Active Medications Acetaminophen (Acetaminophen Tab 325 Mg Tab) 650 mg PO TID@0600,1200,1900 [facility] Last Admin: 05/25/22 11:25 Dose: 650 mg Buspirone HCl (Buspirone Hcl 5 Mg Tab) 15 mg PO TID@0600,1600,1900 [facility] Last Admin: 05/25/22 16:31 Dose: 15 mg Escitalopram Oxalate (Escitalopram 20 Mg Tab) 20 mg PO DAILY@0600 [facility] Last Admin: 05/25/22 06:12 Dose: 20 mg Hydromorphone HCl (Hydromorphone 0.5 Mg/0.5 Ml Syringe) 0.125 mg IVP Q3HR PRN PRN Reason: Pain Scale 1 to 3 Hydromorphone HCl (Hydromorphone 0.5 Mg/0.5 Ml Syringe) 0.5 mg IVP Q3HR PRN PRN Reason: Pain Scale 7 to 10 Last Admin: 05/24/22 20:30 Dose: 0.5 mg Hydromorphone HCl (Hydromorphone 0.5 Mg/0.5 Ml Syringe) 0.25 mg IVP Q3HR PRN PRN Reason: Pain Scale 4 to 6 Sodium Chloride (Saline 0.9%) 1,000 mls @ 70 mls/hr IV .[id number] [facility] Last Admin: 05/25/22 15:45 Dose: 70 mls/hr Ferric Sodium Gluconate 125 mg (/ Sodium Chloride) 110 mls @ 100 mls/hr IVPB DAILY [facility] Stop: 05/26/22 10:05 Last Admin: 05/25/22 11:39 Dose: 100 mls/hr Lactic Acid (Ammonium Lactate 12% Lotion 225 Gm Btl) 1 applic TOPICAL BID@0600,1900 [facility]; Protocol Last Admin: 05/25/22 06:14 Dose: 1 applic Magnesium Hydroxide (Magnesium Hydroxide 2,400 Mg/10 Ml Cup) 2,400 mg PO DAILY PRN PRN Reason: Constipation Mirtazapine (Mirtazapine 15 Mg Tab) 7.5 mg PO DAILY@1900 [facility] Last Admin: 05/24/22 18:08 Dose: 7.5 mg Multivitamins (Multivitamins, Thera 1 Each Tab) 1 each PO DAILY@0600 [facility] Last Admin: 05/25/22 06:11 Dose: 1 each Naloxone HCl (Naloxone 0.4 Mg/Ml 1 Ml Vial) 0.2 mg IV Q2M PRN PRN Reason: Opioid Reversal Nystatin (Nystatin 100,000unit/Gm Cream 30 Gm Tube) 1 applic TOPICAL BID@0600,1900 [facility]; Protocol Last Admin: 05/25/22 06:14 Dose: 1 applic Olanzapine (Olanzapine 7.5 Mg Tab) 7.5 mg PO HS@1999 [facility] Last Admin: 05/24/22 20:25 Dose: 7.5 mg Oxybutynin Chloride (Oxybutynin Xl 5 Mg Tab.Er.24) 10 mg PO DAILY@0600 [facility] Last Admin: 05/25/22 06:11 Dose: 10 mg Pantoprazole Sodium (Pantoprazole 40 Mg Tablet) 40 mg PO DAILY@0600 [facility] Last Admin: 05/25/22 06:11 Dose: 40 mg Rivaroxaban (Rivaroxaban 10 Mg Tab) 10 mg PO DAILY [facility]; Protocol Stop: 06/29/22 09:01 Last Admin: 05/25/22 08:58 Dose: 10 mg Senna/Docusate Sodium (Sennosides-Docusate Sodium 1 Each Tab) 2 each PO HS [facility] Last Admin: 05/24/22 20:25 Dose: 2 each Tamsulosin HCl (Tamsulosin 0.4 Mg Cap.Er.24h) 0.[address] [facility] Tramadol HCl (Tramadol 50 Mg Tab) 50 mg PO Q6H PRN PRN Reason: Pain Scale 1 to 5 Last Admin: 05/25/22 03:01 Dose: 50 mg Tramadol HCl (Tramadol 50 Mg Tab) 100 mg PO QID PRN PRN Reason: Pain Scale 6 to 10 Last Admin: 05/25/22 15:45 Dose: 100 mg Past medical history to include: GERD, , hyperlipidemia, osteoporosis, hypothyroid, gait dysfunction, schizophrenia Social history: Lives at a intermediate. No smoking and I'll call. Does use a walker Physical examination: VITAL SIGNS: 98.7, 77, 18, 10 7 x 70, 98% room air GENERAL: Awake, appears comfortable EYES: Pupils equal. Conjunctiva normal. HEENT: External appearance of nose and ears normal, oral cavity dry mucous membranes. NECK: JVD not raised; masses not palpable. HEART: First and second heart sounds are normal; no edema. LUNGS: Respiratory rate normal; clear to auscultation. ABDOMEN: Soft, nontender, liver spleen not palpable, no masses palpable. PSYCH: Patient is able to answer simple questions. Slightly anxiousl. MUSCULOSKELETAL:No Clubbing/cyanosis;muscles-grossly intact. Limited range of motion right hip. Evidence of OA. k INVESTIGATIONS, reviewed in the clinical context: May 25: White count 6.7 hemoglobin 10.8 platelets 181 White count 11.6 hemoglobin 13.8 platelets 224 potassium 4.5 BUN 19 creatinine 0.6 EKG tracing personally reviewed by me-normal sinus rhythm Chest x-ray film personally reviewed by me-right hip fracture reported Right hip x-ray: subcapital femoral fracture Assessment and plan: -Acute right femoral fracture-subcapital 05/24/2022: Right hip hemiarthroplasty by Dr. Barrios -Acute blood loss anemia expected from surgery IV Ferrlecit 2 doses -Right fifth rib fracture secondary to fall -Essential hypertension Lisinopril 20 mg a day-hold -GERD Omeprazole 20 mg twice a day -Chronic urinary incontinence Detrol LA -Schizophrenia, bipolar Continue home medications IV Ferrlecit. 2 doses. Hold lisinopril because blood pressure in the lower side. Add Flomax for urinary retention.
[2022-05-25] MEDS: MIRTAZAPINE 15 MG TAB PO SCH (18:12)
[2022-05-25] MEDS: OLANZapine 7.5 MG TAB PO SCH (22:22)
[2022-05-25] MEDS: TAMSULOSIN 0.4 MG CAP.ER.24H PO SCH (22:22)
[2022-05-25] MEDS: SENNOSIDES-DOCUSATE SODIUM 1 EACH TAB PO SCH (22:22)
[2022-05-26] MEDS: traMADol 50 MG TAB PO PRN ×2 (03:38→04:43)
[2022-05-26] MEDS: busPIRone HCl 5 MG TAB PO SCH ×2 (04:43→17:43)
[2022-05-26] MEDS: ACETAMINOPHEN TAB 325 MG TAB PO SCH ×3 (04:43→17:43)
[2022-05-26] MEDS: PANTOPRAZOLE 40 MG TABLET PO SCH (04:44)
[2022-05-26] MEDS: OXYBUTYNIN XL 5 MG TAB.ER.24 PO SCH (04:44)
[2022-05-26] MEDS: ESCITALOPRAM 20 MG TAB PO SCH (04:44)
[2022-05-26] MEDS: NYSTATIN 100,000UNIT/GM CREAM 30 GM TUBE TOPICAL SCH ×2 (04:45→17:45)
[2022-05-26] MEDS: AMMONIUM LACTATE 12% LOTION 225 GM BTL TOPICAL SCH ×2 (04:46→17:44)
[2022-05-26] MEDS: MULTIVITAMINS, THERA 1 EACH TAB PO SCH (04:53)
[2022-05-26] MEDS: SODIUM CHLORIDE 0.9% 1,000 ML IV SCH (04:53)
[2022-05-26] MEDS: RIVAROXABAN 10 MG TAB PO SCH (08:20)
[2022-05-26] MEDS: SODIUM FERRIC GLUCONAT-SUCROSE 125 MG in SODIUM CHLORIDE 0.9% 100 ML IVPB SCH (08:21)
[2022-05-26] MEDS: HYDROmorphone 0.5 MG/0.5 ML SYRINGE IVP PRN (08:21)
--- NOTE | 2022-05-26 13:24 | P.PN ---
Subjective Progress Note Date: 05/26/22 This is a 72-year-old female who is status post right hip hemiarthroplasty. This is postoperative day #2 and patient is seen and evaluated at bedside today. Patient states that her pain is well-controlled, but she does not have an appetite. Patient states that she was able to work with physical therapy today. Objective - Vital Signs Vital signs: Vital Signs Temp 98.0 F 05/26/22 07:22 Pulse 76 05/26/22 07:22 Resp 17 05/26/22 07:22 BP 103/68 05/26/22 07:22 Pulse Ox 97 05/26/22 07:22 FiO2 Intake & Output 05/25/22 05/26/22 05/26/22 18:59 06:59 18:59 Output Total 510 450 450 Balance -510 -450 -450 Output: Urine 510 450 450 Uretheral (Christina) 200 Other: Voiding Method Indwelling Catheter Indwelling Catheter Indwelling Catheter - Exam Vital signs are stable. Patient is in no acute distress and is alert and oriented 3. Calf is soft and nontender to palpation. Dressing is clean, dry, and intact. Patient has full foot and ankle motion without pain or difficulty. Sensation intact. Neurovascular status and circulatory status are intact. - Labs CBC & Chem 7: 05/25/22 06:16 05/23/22 18:05 Assessment and Plan (1) Fracture of femoral neck, right Current Visit: Yes Status: Acute Code(s): S72.001A - FRACTURE OF UNSP PART OF NECK OF RIGHT FEMUR, INIT SNOMED Code(s): 3804723 (2) Fracture of hip Current Visit: Yes Status: Acute Code(s): S72.009A - FRACTURE OF UNSP PART OF NECK OF UNSP FEMUR, INIT SNOMED Code(s): 248129955 Plan: Continue routine postop care and pain control. Continue anticoagulation with Xarelto. Weightbearing as tolerated with a walker. Leave dressing in place for 7 days. Appreciate input from medicine. Anticipate discharge back to her [facility] next 24-48 hours.
--- NOTE | 2022-05-26 15:20 | P.PN ---
Progress Note - Text Progress Note Date: 05/26/22 - Chief Complaint Fall Hospital course This is a 72-year-old patient who follows with visiting physicians Dr. Puente. Patient had fallen earlier this morning and hit the right Table. Did tolerate ahead no loss of conscious. EMS noted some swelling and discoloration of the right knee. Pain in the right leg. In the ER patient was discovered to have right femur fracture. Patient does use a walker to get about. Patient had tripped. Denies any chest pain or shortness of breath. Patient is a slow historian. 05/24/2022: Patient underwent right hip hemiarthroplasty by Dr. Barrios. Postprocedure laying in bed. Pain control. Starting a diet. No nausea vomiting. 05/25/2022: In bed. Pain control. Tolerating diet well. Some urinary retention. Start Flomax. Christina if needed. Drop in hemoglobin. IV Ferrlecit. 05/26/2022: Up in a recliner. Comfortable. Oral intake fair. Pain controlled. Plan for orthopedics discharge in next 24 hours Active Medications Acetaminophen (Acetaminophen Tab 325 Mg Tab) 650 mg PO TID@0600,1200,1900 [facility] Last Admin: 05/26/22 13:13 Dose: Not Given Buspirone HCl (Buspirone Hcl 5 Mg Tab) 15 mg PO TID@0600,1600,1900 [facility] Last Admin: 05/26/22 04:43 Dose: 15 mg Escitalopram Oxalate (Escitalopram 20 Mg Tab) 20 mg PO DAILY@0600 [facility] Last Admin: 05/26/22 04:44 Dose: 20 mg Hydromorphone HCl (Hydromorphone 0.5 Mg/0.5 Ml Syringe) 0.125 mg IVP Q3HR PRN PRN Reason: Pain Scale 1 to 3 Hydromorphone HCl (Hydromorphone 0.5 Mg/0.5 Ml Syringe) 0.5 mg IVP Q3HR PRN PRN Reason: Pain Scale 7 to 10 Last Admin: 05/26/22 08:21 Dose: 0.5 mg Hydromorphone HCl (Hydromorphone 0.5 Mg/0.5 Ml Syringe) 0.25 mg IVP Q3HR PRN PRN Reason: Pain Scale 4 to 6 Sodium Chloride (Saline 0.9%) 1,000 mls @ 70 mls/hr IV .[id number] [facility] Last Admin: 05/26/22 04:53 Dose: 70 mls/hr Lactic Acid (Ammonium Lactate 12% Lotion 225 Gm Btl) 1 applic TOPICAL BID@0600,1900 [facility]; Protocol Last Admin: 05/26/22 04:46 Dose: 1 applic Magnesium Hydroxide (Magnesium Hydroxide 2,400 Mg/10 Ml Cup) 2,400 mg PO DAILY PRN PRN Reason: Constipation Mirtazapine (Mirtazapine 15 Mg Tab) 7.5 mg PO DAILY@1900 [facility] Last Admin: 05/25/22 18:12 Dose: 7.5 mg Multivitamins (Multivitamins, Thera 1 Each Tab) 1 each PO DAILY@0600 [facility] Last Admin: 05/26/22 04:53 Dose: 1 each Naloxone HCl (Naloxone 0.4 Mg/Ml 1 Ml Vial) 0.2 mg IV Q2M PRN PRN Reason: Opioid Reversal Nystatin (Nystatin 100,000unit/Gm Cream 30 Gm Tube) 1 applic TOPICAL BID@0600,190 [facility]; Protocol Last Admin: 05/26/22 04:45 Dose: 1 applic Olanzapine (Olanzapine 7.5 Mg Tab) 7.5 mg PO HS@1999 [facility] Last Admin: 05/25/22 22:22 Dose: 7.5 mg Oxybutynin Chloride (Oxybutynin Xl 5 Mg Tab.Er.24) 10 mg PO DAILY@0600 [facility] Last Admin: 05/26/22 04:44 Dose: 10 mg Pantoprazole Sodium (Pantoprazole 40 Mg Tablet) 40 mg PO DAILY@0600 [facility] Last Admin: 05/26/22 04:44 Dose: 40 mg Rivaroxaban (Rivaroxaban 10 Mg Tab) 10 mg PO DAILY [facility]; Protocol Stop: 06/29/22 09:01 Last Admin: 05/26/22 08:20 Dose: 10 mg Senna/Docusate Sodium (Sennosides-Docusate Sodium 1 Each Tab) 2 each PO HS [facility] Last Admin: 05/25/22 22:22 Dose: 2 each Tamsulosin HCl (Tamsulosin 0.4 Mg Cap.Er.24h) 0.4 mg PO [facility] Last Admin: 05/25/22 22:22 Dose: 0.4 mg Tramadol HCl (Tramadol 50 Mg Tab) 50 mg PO Q6H PRN PRN Reason: Pain Scale 1 to 5 Last Admin: 05/26/22 04:43 Dose: 50 mg Tramadol HCl (Tramadol 50 Mg Tab) 100 mg PO QID PRN PRN Reason: Pain Scale 6 to 10 Last Admin: 05/25/22 15:45 Dose: 100 mg Past medical history to include: GERD, , hyperlipidemia, osteoporosis, hypothyroid, gait dysfunction, schizophrenia Social history: Lives at a shelter. No smoking and I'll call. Does use a walker Physical examination: VITAL SIGNS: 98.3, 84, 19, 1 and 1.69, 96% on 3 L GENERAL: Declining, comfortable EYES: Pupils equal. Conjunctiva normal. HEENT: External appearance of nose and ears normal, oral cavity dry mucous membranes. NECK: JVD not raised; masses not palpable. HEART: First and second heart sounds are normal; no edema. LUNGS: Respiratory rate normal; clear to auscultation. ABDOMEN: Soft, nontender, liver spleen not palpable, no masses palpable. PSYCH: Patient is able to answer simple questions. Slightly anxiousl. MUSCULOSKELETAL:No Clubbing/cyanosis;muscles-grossly intact. Limited range of motion right hip. Evidence of OA. INVESTIGATIONS, reviewed in the clinical context: May 25: White count 6.7 hemoglobin 10.8 platelets 181 White count 11.6 hemoglobin 13.8 platelets 224 potassium 4.5 BUN 19 creatinine 0.6 EKG tracing personally reviewed by me-normal sinus rhythm Chest x-ray film personally reviewed by me-right hip fracture reported Right hip x-ray: subcapital femoral fracture Assessment and plan: -Acute right femoral fracture-subcapital 05/24/2022: Right hip hemiarthroplasty by Dr. Barrios -Acute blood loss anemia expected from surgery IV Ferrlecit 2 doses -Right fifth rib fracture secondary to fall -Essential hypertension Lisinopril hold -GERD Omeprazole 20 mg twice a day -Chronic urinary incontinence Detrol LA -Schizophrenia, bipolar Continue home medications IV Ferrlecit. 2 doses. Hold lisinopril because . DC IV fluids. Medically stable.
[2022-05-26] MEDS: MIRTAZAPINE 15 MG TAB PO SCH (17:44)
[2022-05-26] MEDS: SENNOSIDES-DOCUSATE SODIUM 1 EACH TAB PO SCH (22:26)
[2022-05-26] MEDS: OLANZapine 7.5 MG TAB PO SCH (22:27)
[2022-05-26] MEDS: TAMSULOSIN 0.4 MG CAP.ER.24H PO SCH (22:27)
[2022-05-27] MEDS: traMADol 50 MG TAB PO PRN ×2 (01:21→10:45)
[2022-05-27] MEDS: OXYBUTYNIN XL 5 MG TAB.ER.24 PO SCH (05:45)
[2022-05-27] MEDS: MULTIVITAMINS, THERA 1 EACH TAB PO SCH (05:46)
[2022-05-27] MEDS: busPIRone HCl 5 MG TAB PO SCH (05:46)
[2022-05-27] MEDS: PANTOPRAZOLE 40 MG TABLET PO SCH (05:46)
[2022-05-27] MEDS: ESCITALOPRAM 20 MG TAB PO SCH (05:46)
[2022-05-27] MEDS: ACETAMINOPHEN TAB 325 MG TAB PO SCH ×2 (05:46→12:50)
[2022-05-27] MEDS: NYSTATIN 100,000UNIT/GM CREAM 30 GM TUBE TOPICAL SCH (05:49)
[2022-05-27] MEDS: AMMONIUM LACTATE 12% LOTION 225 GM BTL TOPICAL SCH (05:49)
[2022-05-27] MEDS: RIVAROXABAN 10 MG TAB PO SCH (07:34)
[2022-05-27 08:47] LABS: Basophils # (A) 0.02 X 10*3/uL (0.00-0.10); Basophils % (A) 0.3 %; Eosinophils # (A) 0.19 X 10*3/uL (0.04-0.35); Eosinophils % (A) 2.8 %; HCT 26.7 % (37.2-46.3); Immature Grans, Automated 0.6 %; Lymphocytes # (A) 1.37 X 10*3/uL (0.90-5.00); Lymphocytes % (A) 20.5 %; MCH 32.3 pg (27.0-32.0); MCHC 33.7 g/dL (32.0-37.0); MCV 95.7 fL (80.0-97.0); Mean Platelet Volume 10.5 fL (9.5-12.2); Monocytes # (A) 0.87 X 10*3/uL (0.20-1.00); NRBC Per 100 WBC 0 /100 WBCS (0.0-0.0); Neutrophils % (A) 62.8 %; Platelet Count 164 X 10*3/uL (140-440); RBC 2.79 X 10*6/uL (4.10-5.20); RDW 13.7 % (11.5-14.5); WBC 6.69 X 10*3/uL (4.50-10.00)
--- NOTE | 2022-05-27 13:46 | P.DS ---
Providers Date of admission: 05/23/22 18:55 Expected date of discharge: 05/27/22 Attending physician: Johnathon Barrios Consults: 05/23/22 19:43 Consult Physician Urgent Consulting Provider: Frank York Consult Reason/Comments: Medical clearance for surgery Do you want consulting provider notified?: Yes Primary care physician: Felice Puente MD - Discharge Diagnosis(es) (1) Fracture of femoral neck, right Current Visit: Yes Status: Acute (2) Fracture of hip Current Visit: Yes Status: Acute Hospital Course: This is a 72-year-old female who was admitted for a hip fracture after a fall at [facility]. The patient presented for evaluation in the emergency room and x-rays revealed a femoral neck fracture of the right hip. After discussion and consideration patient elects to proceed with right hip hemiarthroplasty. The patient is seen preoperatively by Dr. Barrios and cleared for surgery by internal medicine. Patient is admitted to [facility] on 05/24/2022 for right hip hemiarthroplasty. The procedures performed without complication or sequelae. The patient is doing well postoperatively. Labs and vital signs are stable on day of discharge. Patient was having difficulty voiding after her sanchez was removed. Patient was evaluated for this by internal medicine and will follow up with urology as an outpatient if needed after discharge. On day of discharge patient's hip incision is healing well. There is minimal erythema. There is no drainage noted at this time. There is minimal soft tissue swelling to the hip and thigh. Patient has full foot and ankle motion without difficulty or pain. Neurovascular status to the right lower extremity is intact. [facility] is [facility] to her [facility] in good condition. Please see med rec for accurate list of home medications. Plan - Discharge Summary New Discharge Prescriptions: New Sennosides [Senokot] 2 tab PO DAILY PRN #60 tablet PRN Reason: Constipation Rivaroxaban [Xarelto] 10 mg PO DAILY #35 tab traMADol HCl [Ultram] 1 - 2 tab PO Q6H PRN #32 tab PRN Reason: Pain Tamsulosin [Flomax] 0.4 mg PO HS cap Continue busPIRone HCL 15 mg PO TID@0600,1600,1900 Nystatin 100,000Unit/gm Cream [Mycostatin Cream] 1 applic TOPICAL BID@0600,1900 Ammonium Lactate Lotion [Lac-Hydrin 12% Lotion] 1 applic TOPICAL BID@0600,1900 Loperamide HCl [Loperamide HCl Oral Susp] 2 - 4 mg PO DIRECTED PRN PRN Reason: Diarrhea Tolterodine ER [Detrol LA] 4 mg PO DAILY@0600 Omeprazole 20 mg PO BID@0600,1600 Acetaminophen [Tylenol Arthritis] 650 mg PO TID@0600,1200,1900 OLANZapine 7.5 mg PO HS@1999 Multivit-Min/FA/Lycopen/Lutein [Centrum Silver Tablet] 1 tab PO DAILY@0600 Mirtazapine 7.5 mg PO DAILY@1900 Escitalopram [Lexapro] 20 mg PO DAILY@0600 Discontinued Ciprofloxacin HCl [Cipro] 500 mg PO BID@0600,1900 lisinopriL [Zestril] 20 mg PO DAILY@0600 Discharge Medication List busPIRone HCL 15 mg PO TID@0600,1600,1900 08/22/16 [History] Acetaminophen [Tylenol Arthritis] 650 mg PO TID@0600,1200,1900 05/10/21 [History] Omeprazole 20 mg PO BID@0600,1600 05/10/21 [History] Tolterodine ER [Detrol LA] 4 mg PO DAILY@0600 05/10/21 [History] Ammonium Lactate Lotion [Lac-Hydrin 12% Lotion] 1 applic TOPICAL BID@0600,1900 05/23/22 [History] Escitalopram [Lexapro] 20 mg PO DAILY@0600 05/23/22 [History] Loperamide HCl [Loperamide HCl Oral Susp] 2 - 4 mg PO DIRECTED PRN 05/23/22 [History] Mirtazapine 7.5 mg PO DAILY@19005/23/22 [History] Multivit-Min/FA/Lycopen/Lutein [Centrum Silver Tablet] 1 tab PO DAILY@0600 05/23/22 [History] Nystatin 100,000Unit/gm Cream [Mycostatin Cream] 1 applic TOPICAL BID@0600,1900 05/23/22 [History] OLANZapine 7.5 mg PO HS@199905/23/22 [History] Rivaroxaban [Xarelto] 10 mg PO DAILY #35 tab 05/24/22 [Rx] Sennosides [Senokot] 2 tab PO DAILY PRN #60 tablet 05/24/22 [Rx] traMADol HCl [Ultram] 1 - 2 tab PO Q6H PRN #32 tab 05/24/22 [Rx] Tamsulosin [Flomax] 0.4 mg PO HS cap 05/27/22 [Rx] Follow up Appointment(s)/Referral(s): Felice Puente MD [Primary Care Provider] - 1-2 days Johnathon Barrios DO [Doctor of Osteopathic Medicine] - 06/03/22 9:45 am (With [facility]) [facility] Visiting Nurse, [NON-STAFF] - 1-2 Days Activity/Diet/Wound Care/Special Instructions: Weightbearing as tolerated with walker. Leave dressing intact. Dressing may be removed by home care nurse or by patient in 7 days. Then change dressing twice daily until follow up. May shower with initial dressing intact and after removal. If dressing become saturated, please remove. Please take Xarelto daily for 35 days to prevent blood clots. Recommend use of compression stockings daily until follow up to help prevent swelling and blood clots. May remove at night before sleeping. Please follow-up with [facility] in 2 weeks and call with any questions or concerns, . Patient requires a bedside commode because she will be room confined at home due to a right hip fracture. Patient requires a wheelchair to complete her ADLs that cannot be done with a walker or cane due to hip fracture. There are staff at her [facility] 26/09 that are able to propel her. Discharge Disposition: HOME WITH HOME HEALTH SERVICES
[2022-05-27 14:20] VITALS: BP 95/66; PULSE 81; RESP 17; TEMP 98.1
--- NOTE | 2022-05-27 16:40 | P.PN ---
Progress Note - Text Progress Note Date: 05/27/22 - Chief Complaint Fall Hospital course This is a 72-year-old patient who follows with visiting physicians Dr. Puente. Patient had fallen earlier this morning and hit the right Table. Did tolerate ahead no loss of conscious. EMS noted some swelling and discoloration of the right knee. Pain in the right leg. In the ER patient was discovered to have right femur fracture. Patient does use a walker to get about. Patient had tripped. Denies any chest pain or shortness of breath. Patient is a slow historian. 05/24/2022: Patient underwent right hip hemiarthroplasty by Dr. Barrios. Postprocedure laying in bed. Pain control. Starting a diet. No nausea vomiting. 05/25/2022: In bed. Pain control. Tolerating diet well. Some urinary retention. Start Flomax. Christina if needed. Drop in hemoglobin. IV Ferrlecit. 05/26/2022: Up in a recliner. Comfortable. Oral intake fair. Pain controlled. Plan for orthopedics discharge in next 24 hours 05/27/2022: In bed. Oral intake fair. Pain control. We will be discharged to [facility] today. Current medications reviewed Past medical history to include: GERD, , hyperlipidemia, osteoporosis, hypothyroid, gait dysfunction, schizophrenia Social history: Lives at a detention. No smoking and I'll call. Does use a walker Physical examination: VITAL SIGNS: 98.1, 81, 17, 95/66, 91% room air GENERAL: A reclining comfortable EYES: Pupils equal. Conjunctiva normal. HEENT: External appearance of nose and ears normal, oral cavity dry mucous membranes. NECK: JVD not raised; masses not palpable. HEART: First and second heart sounds are normal; no edema. LUNGS: Respiratory rate normal; clear to auscultation. ABDOMEN: Soft, nontender, liver spleen not palpable, no masses palpable. PSYCH: Patient is able to answer simple questions. Slightly anxiousl. MUSCULOSKELETAL:No Clubbing/cyanosis;muscles-grossly intact. Limited range of motion right hip. Evidence of OA. INVESTIGATIONS, reviewed in the clinical context: May 26: Hemoglobin 9 May 25: White count 6.7 hemoglobin 10.8 platelets 181 White count 11.6 hemoglobin 13.8 platelets 224 potassium 4.5 BUN 19 creatinine 0.6 EKG tracing personally reviewed by me-normal sinus rhythm Chest x-ray film personally reviewed by me-right hip fracture reported Right hip x-ray: subcapital femoral fracture Assessment and plan: -Acute right femoral fracture-subcapital 05/24/2022: Right hip hemiarthroplasty by Dr. Barrios -Acute blood loss anemia expected from surgery Received IV Ferrlecit 2 doses -Right fifth rib fracture secondary to fall -Essential hypertension Lisinopril hold -GERD Omeprazole 20 mg twice a day -Chronic urinary incontinence Detrol LA -Schizophrenia, bipolar Continue home medications Patient should have a CBC checked in 4 days. Other medications to continue. Lisinopril continue to hold.
== END 2022-05-27 17:32 | disposition home health service (06) | DRG 522 ==
LOC: EC 16:16 → 4SSUR 18:55
PROVIDERS: ADMIT Orthopaedic Surgery; ATTEND Orthopaedic Surgery
PROC: 0SRR0JA Replacement of Right Hip Joint, Femoral Surface with Synthetic Substitute, Uncemented, Open Approach (ICD-10-PCS; principal; 2022-05-23)
DX: S72.011A Unspecified intracapsular fracture of right femur, initial encounter for closed fracture (principal); S22.31XA Fracture of one rib, right side, initial encounter for closed fracture; D62 Acute posthemorrhagic anemia; W01.198A Fall on same level from slipping, tripping and stumbling with subsequent striking against other object, initial encounter; K21.9 Gastro-esophageal reflux disease without esophagitis; I10 Essential (primary) hypertension; R32 Unspecified urinary incontinence; M19.90 Unspecified osteoarthritis, unspecified site; E07.9 Disorder of thyroid, unspecified; Z89.422 Acquired absence of other left toe(s); Z89.421 Acquired absence of other right toe(s); F40.240 Claustrophobia; E03.9 Hypothyroidism, unspecified; M81.0 Age-related osteoporosis without current pathological fracture; E78.5 Hyperlipidemia, unspecified; F25.0 Schizoaffective disorder, bipolar type; K59.00 Constipation, unspecified; Z79.899 Other long term (current) drug therapy
CPT/HCPCS: 71045; 73501; 73502; 80053; 85025; 85610; 85730; 86850; 86900; 86901; 88305; 88311; 93005; 94760; 96361; 96374; 99285

== ENCOUNTER → 2022-09-01 | Outpatient (CLI) | payer MEDICARE, OTHER ==
--- NOTE | 2022-09-01 10:51 | BD ---
EXAMINATION TYPE: Axial Bone Density DATE OF EXAM: 09/01/2022 CLINICAL HISTORY: 72 year old Female. ICD-10 CODE: M81.0 AGE-RELATED OSTEOPOROSIS W/O CURRENT PATHOL O Height: 62 Weight: 162.8 FRAX RISK QUESTIONS: Alcohol (3 or more units per day): no Family History (Parent hip fracture): no Glucocorticoids (More than 3mos): no (Ex: prednisone, prednisolone, methylprednisolone, dexamethasone, and hydrocortisone). History of Fracture in Adulthood: yes Secondary Osteoporosis: 1. Type 1 Diabetes: no 2. Hyperthyroidism: no 3. Menopause before 45: no 4. Malnutrition: no 5. Chronic liver disease: no Rheumatoid Arthritis: no Current Tobacco Use: no RISK FACTORS HISTORY OF: Hip Fracture (Right/Left): right When: Surgery to Spine/Hip(right/left)/Wrist (right/left): right hip Active: no Postmenopausal woman: yes MEDICATIONS: Additional History: EXAM MEASUREMENTS: Bone mineral densitometry was performed using the [employer] System. Bone mineral density as measured about the Lumbar spine is: ----- L1-L4(G/cm2): 0.990 T Score Values are as follows: ----- L1: -0.9 ----- L2: -1.4 ----- L3: -1.6 ----- L4: -2.4 ----- L1-L4: -1.6 Z Score Values are as follows: ----- L1: 0.5 ----- L2: 0.0 ----- L3: -0.2 ----- L4: -0.9 ----- L1-L4: -0.2 Bone mineral density has: decreased -5.5 % since study of: 03.30.2018 Bone mineral density about the L hip (g/cm2): T Score values are as follows: -----L Neck: -3.0 -----L Total: -2.6 Z Score values are as follows: -----L Neck: -1.4 -----L Total: -1.2 Bone mineral density has: decreased -7.0% since study of: 03.30.2018 FRAX%s: The graph provided illustrates a 20.0% chance for a major osteoporotic fx and a 7.2% chance f or the hips probability for fx in 10 years time. IMPRESSION: Osteoporosis (T Score less than -2.5). There is increased fracture risk and therapy is usually indicated based on age. Re-Screen 1-2 years. NOTE: T-SCORE=SD OF THE YOUNG ADULT MEAN.
== END | disposition home or self-care (01) ==
LOC: RADBDWWP 09:40
PROVIDERS: ATTEND General Practice
DX: M81.0 Age-related osteoporosis without current pathological fracture (principal); M85.89 Other specified disorders of bone density and structure, multiple sites; R19.7 Diarrhea, unspecified; I10 Essential (primary) hypertension; E11.9 Type 2 diabetes mellitus without complications
CPT/HCPCS: 77080

== ENCOUNTER 2024-05-21 08:07 | Day surgery (SDC) | payer MEDICARE, OTHER ==
[2024-05-20 09:34] VITALS: BMI 34.2
[~2024-05-21 08:07] MED LIST changes: +LACTATED RINGERS 1,000 ML IV SCH; -LIDOCAINE 1% (10MG/ML) FOR IV START INTRADERMA PRN
[2024-05-21 08:39] VITALS: TEMP 99.2
[2024-05-21] MEDS: IV FLUID CONTINUATION 1,000 ML IV ONE (08:46)
[2024-05-21] MEDS ORDERED: PROPOFOL 10 MG/ML 20 ML VIAL IV ONE (08:57)
[2024-05-21] MEDS ORDERED: LIDOCAINE 2% (PF) 20 MG/ML 5 ML VIAL ONE (08:57)
--- NOTE | 2024-05-21 09:12 | P.PCN ---
Date of Procedure: 05/21/24 Procedure(s) Performed: BRIEF HISTORY: Patient is a 74-year-old, pleasant, white female scheduled for an upper endoscopies upon evaluation of longstanding history of GERD and intermittent dysphagia to solids for the last several months duration . PROCEDURE PERFORMED: Esophagogastroduodenoscopy with biopsy and dilation. PREOPERATIVE DIAGNOSIS: Longstanding history of GERD and intermittent dysphagia to solids. IV sedation per anesthesia. PROCEDURE: After informed consent was obtained, the patient was brought into the endoscopy unit. IV sedation was administered by Anesthesia under continuous monitoring. Initially the Olympus GIF-140 video endoscope was inserted into the mouth. Esophagus intubated without any difficulty. It was gradually advanced into the stomach and duodenum and carefully examined. The bulb of the duodenum had a 2 cm polyp that was biopsied. And the second part of the duodenum appeared normal. The scope at this time was withdrawn to the stomach, adequately insufflated with air, and upon careful examination, mucosa of the antrum, body had gastritis and small gastric polyps which were biopsied. Mucosa, cardia and the fundus appeared normal. The scope was then withdrawn into the esophagus. Small hiatal hernia noted. The GE junction was located at 35 cm from the in cisors. There was a distal esophageal stricture identified and this was dilated using 15 to 8 mm TTS balloon. There was a short segment of Farah's esophagus 3 mm proximal to the GE junction that was biopsied. The esophagus appeared normal. There were no erosions or ulcerations seen and the patient tolerated the procedure well. IMPRESSION: 1. Distal esophageal stricture status post balloon dilation using 15 to 18 mm TTS balloon. 2. Short segment Farah's esophagus and small hiatal hernia 3. 2 cm duodenal polyp in the duodenal bulb status post multiple biopsies 4. Mild diffuse antral gastritis. RECOMMENDATIONS: The findings of this examination were discussed with the patient as well as his family. She was advised to follow-up with the biopsy results. If the biopsy confirms the presence of Farah's esophagus she can have repeat upper endoscopy in 3 years. In the meantime she will continue with omeprazole 20 mg daily and follow antireflux measures..
[2024-05-21 09:47] VITALS: BP 134/74; PULSE 72; RESP 16
== END 2024-05-21 09:48 ==
LOC: ORWHC2ENDO 08:07
PROVIDERS: ATTEND Internal Medicine Gastroenterology
DX: K22.2 Esophageal obstruction (principal); K29.50 Unspecified chronic gastritis without bleeding; K31.7 Polyp of stomach and duodenum; K22.70 Barrett's esophagus without dysplasia; K21.00 Gastro-esophageal reflux disease with esophagitis, without bleeding; K44.9 Diaphragmatic hernia without obstruction or gangrene; I10 Essential (primary) hypertension; E78.5 Hyperlipidemia, unspecified; F41.9 Anxiety disorder, unspecified; F32.A Depression, unspecified; Z79.899 Other long term (current) drug therapy; Z88.5 Allergy status to narcotic agent
CPT/HCPCS: 43249; 43239; 88305; J2704; J2003; C1726

== ENCOUNTER 2024-07-05 10:43 | Day surgery (SDC) | payer MEDICARE, OTHER ==
[2024-07-04 09:12] VITALS: BMI 34.5
[~2024-07-05 10:43] MED LIST changes: +LIDOCAINE 1% (10MG/ML) FOR IV START INTRADERMA PRN
[2024-07-05] MEDS: IV FLUID CONTINUATION 1,000 ML IV ONE (11:31)
[2024-07-05 11:33] VITALS: TEMP 97
[2024-07-05] MEDS ORDERED: PROPOFOL 10 MG/ML 20 ML VIAL IV ONE (12:27)
[2024-07-05] MEDS ORDERED: LIDOCAINE 1% INJ 10MG/ML (20 ML MDV) ONE (12:27)
--- NOTE | 2024-07-05 12:42 | P.PCN ---
Date of Procedure: 07/05/24 Procedure(s) Performed: BRIEF HISTORY: Patient is a 74-year-old, pleasant, white female scheduled for an upper endoscopy as a part of follow-up of duodenal polyp. She did have an EGD on May 21, 2024 that revealed a 2 cm duodenal polyp in the bulb of the duodenum and multiple biopsies were done from this area. 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 She is not scheduled for repeat upper endoscopy with duodenal polypectomy today.. PROCEDURE PERFORMED: Esophagogastroduodenoscopy with snare polypectomy and Endo Clip placement PREOPERATIVE DIAGNOSIS: Follow-up duodenal adenoma. IV sedation per anesthesia. PROCEDURE: After informed consent was obtained, the patient was brought into the endoscopy unit. IV sedation was administered by Anesthesia under continuous monitoring. Initially the Olympus GIF-140 video endoscope was inserted into the mouth. Esophagus intubated without any difficulty. It was gradually advanced into the stomach and duodenum and carefully examined. The bulb of the duodenum had a 2 cm broad-based polyp identified. The polyp was removed in a piecemeal fashion and complete polypectomy accomplished. Following the polypectomy 2 endoclips were placed to prevent post polypectomy. Mucosa of the second part of the duodenum appeared normal. The scope at this time was withdrawn to the stomach, adequately insufflated with air, and upon careful examination, mucosa of the antrum, had diffuse gastritis. The body, cardia and the fundus appeared normal. The scope was then withdrawn into the esophagus. Small hiatal hernia noted. The GE junction was located at 39 cm from the incisors. The esophagus appeared normal. There were no erosions or ulcerations seen and the patient tolerated the procedure well. IMPRESSION: 1. 2 cm broad-based duodenal bulbar polyp status post piecemeal snare polypectomy and complete polypectomy accomplished followed by Endo Clip placement. 2. Small hiatal hernia 3. Mild diffuse gastritis. RECOMMENDATIONS: The findings of this examination were discussed with the patient as well as her family. She was advised to follow-up with the biopsy results. Based on the biopsy results we will plan a repeat upper endoscopy in 6 months to 1 year..
[2024-07-05 12:51] VITALS: RESP 16
[2024-07-05 12:59] VITALS: BP 100/52; PULSE 78
== END 2024-07-05 13:14 ==
LOC: ORWHC2ENDO 10:43
PROVIDERS: ATTEND Internal Medicine Gastroenterology
DX: D13.2 Benign neoplasm of duodenum (principal); K44.9 Diaphragmatic hernia without obstruction or gangrene; K31.7 Polyp of stomach and duodenum; K29.70 Gastritis, unspecified, without bleeding
CPT/HCPCS: 43251; J2003; J2704; 88305